=== PATIENT | male | born 1955 | race Hispanic/Latino ===

== ENCOUNTER 2017-03-15 19:00 | Outpatient (CLI) | payer BC | END 2017-03-15 19:01 | disposition home or self-care (01) | LOC: SLEEPLAB 19:00 | PROVIDERS: ATTEND Family Medicine | DX: G47.9 Sleep disorder, unspecified (principal); G47.33 Obstructive sleep apnea (adult) (pediatric); E66.9 Obesity, unspecified; I10 Essential (primary) hypertension | CPT/HCPCS: 95806 ==

== ENCOUNTER 2017-04-27 20:30 | Outpatient (CLI) | payer BC | END 2017-04-27 20:31 | disposition home or self-care (01) | LOC: SLEEPLAB 20:30 | PROVIDERS: ATTEND Family Medicine | DX: G47.9 Sleep disorder, unspecified (principal); E66.9 Obesity, unspecified | CPT/HCPCS: 95811 ==

== ENCOUNTER 2018-12-12 11:15 | Emergency (ER) | payer BC ==
[2018-12-12 11:55] LABS: #Basophils 0.1 thou/uL (0.0-0.2); #Eosinphils 0.2 thou/uL (0.0-0.7); #Lymphocytes 1.8 thou/uL (1.20-3.40); #Monocytes 0.9 thou/uL (0.11-0.59); #Neutrophils 8.7 thou/uL (1.40-6.50); %Basophils 0.8 % (0.0-1.0); %Eosinophils 1.3 % (0.0-10.0); %Lymphocytes 15.7 % (21.0-51.0); %Monocytes 7.4 % (0.0-10.0); %Neutrophils 74.8 % (42.0-75.0); Hemoglobin 16.2 g/dL (14.0-18.0); Mean Corpuscular HGB CONC 31.9 g/dL (32.0-36.0); Mean Corpuscular Hemoglobin 28.3 pg (27.0-31.0); Mean Corpuscular Volume 88.7 fL (78.0-98.0); Mean Platelet Volume 7.8 fL (7.4-10.4); Platelet Count 329 thou/uL (130-400); RBC Distribution Width 12.3 % (11.5-14.5); Red Blood Cell (RBC) Count 5.74 mill/uL (4.70-6.10); White Blood Cell (WBC) Count 11.6 thou/uL (4.8-10.8)
[2018-12-12 12:00] LABS: INR-International Normal Ratio 1.1; PTT 28.4 SEC (22.9-36.1); Prothrombin Time 14.5 SEC (12.0-14.7)
[2018-12-12 12:22] LABS: ALT (SGPT) 18 U/L (8-55); AST (SGOT) 28 U/L (5-34); Albumin 3.7 g/dL (3.4-4.8); Alkaline Phosphatase 99 U/L (40-150); Anion Gap 15 mmol/L (10-20); BUN (Urea Nitrogen) 17 mg/dL (8.4-25.7); Bilirubin, Total 0.8 mg/dL (0.2-1.2); Calc. Creatinine Clearance 0 mL/min (70-130); Calcium 8.8 mg/dL (7.8-10.44); Carbon Dioxide 25 mmol/L (23-31); Chloride 100 mmol/L (98-107); Estimated GFR-MDRD 55; Globulin 3.8 g/dL (2.4-3.5); Glucose 102 mg/dL (80-115); Lipase 79 U/L (8-78); Potassium 4.2 mmol/L (3.5-5.1); Protein, Total 7.5 g/dL (5.8-8.1); Sodium 136 mmol/L (136-145)
[2018-12-12] MEDS ORDERED: Lidocaine 1% (PF) 30 ML VIAL ONE (12:34)
[2018-12-12] MEDS ORDERED: Morphine 4 MG/ML VIAL ONE (12:48)
[2018-12-12 13:09] LABS: HBCM Index 0.05 S/CO (0-0.79); Hep A IgM AB Non-Reactive (NonReactive); Hep A IgM S/CO 0.16 S/CO (0-0.79); Hep B Surf Ag Non-Reactive S/CO (NonReactive); Hep C IgG Ab Non-Reactive (NonReactive); Hepatitis B Core IgM Abs Non-Reactive (NonReactive)
[2018-12-12 13:58] LABS: BF Color Yellow; Body Fluid Source Ascites Body Fluid; Clarity Cloudy/Turbid (Clear); RBC Count-Automated 10000 /cumm; Tube # 1; WBC/NonHematic-Auto 717 /cumm
[2018-12-12 14:01] LABS: Fluid, Protein 4.3 g/dL (Not Available)
[2018-12-12 14:25] LABS: BF Segmented Neutrophils 2 %; Cell Count Non Hematic 63 %; Lymphocytes 35 %
== END 2018-12-12 14:55 | disposition home or self-care (01) ==
LOC: ERS 11:15
DX: R18.8 Other ascites (principal); I10 Essential (primary) hypertension; F41.9 Anxiety disorder, unspecified; F17.220 Nicotine dependence, chewing tobacco, uncomplicated; Z79.899 Other long term (current) drug therapy
CPT/HCPCS: 36415; 49083; 80053; 80074; 82042; 82945; 83690; 84157; 85025; 85060; 85610; 85730; 87070; 87205; 88112; 88305; 88341; 88342; 89051; 96374; J2001; J2270

== ENCOUNTER 2018-12-16 12:56 | Outpatient (CLI) | payer BC ==
--- NOTE | 2018-12-16 13:11 | RAD ---
TWO VIEWS OF THE CHEST: COMPARISON: None. HISTORY: Neoplasm of the head of the pancreas. FINDINGS: Two views of the chest show a normal size cardiomediastinal silhouette. There are low lung volumes o n this exam. There is no evidence of consolidation, mass, or pleural effusion. Degenerative changes are seen in the spine. IMPRESSION: No evidence of acute cardiopulmonary disease. POS: [facility]
== END 2018-12-16 12:57 | disposition home or self-care (01) ==
LOC: BICRAD 12:56
PROVIDERS: ATTEND Internal Medicine Medical Oncology
DX: C25.0 Malignant neoplasm of head of pancreas (principal)
CPT/HCPCS: 71046

== ENCOUNTER 2018-12-22 09:51 | Outpatient (CLI) | payer BC ==
--- NOTE | 2018-12-22 15:03 | PET ---
PET CT: HISTORY: 63-year-old male with pancreatic cancer. Cancer in the peritoneal fluid. Exam requested for initial s taging. TECHNIQUE: PET scanning with CT attenuation correction was performed from the base of the brain through the prox imal thighs following the intravenous administration of 13 mCi F18-FDG in the left antecubital fossa. COMPARISON: None. CORRELATION: CT abdomen and pelvis of 12/11/18. FINDINGS: There is ascites in the abdomen and pelvis. Numerous hypermetabolic foci are noted in the peritoneal implants in the abdomen and pelvis with a maximum SUV of 10.5 in the left upper quadrant. There is a focal area of increased FDG localization in the liver, likely left lobe close to the hilum with a SUV of 5.7. There is a hypermetabolic lymph node in the gastrohepatic ligament with a SUV of 2.6. The hypermetabolic peripancreatic lymph node has a SUV of 3.6. No isis hypermetabolism is seen in the neck, chest, or axilla. No hypermetabolic pulmonary nodules, adrenal, or skeletal lesions are seen. The CT scan used for attenuation correction demonstrates ascites. No pleural or pericardial effusions are seen. There is physiologic activity in the GI and tracts, and the visualized portions of the brain. No hypermetabolic pancreatic lesions are seen. IMPRESSION: Findings are consistent with peritoneal, liver, and lymph isis metastases. POS: [facility]
== END 2018-12-22 09:52 | disposition home or self-care (01) ==
LOC: PET 09:51
PROVIDERS: ATTEND Internal Medicine Medical Oncology
DX: C25.9 Malignant neoplasm of pancreas, unspecified (principal); C78.6 Secondary malignant neoplasm of retroperitoneum and peritoneum
CPT/HCPCS: 78815; A9552

== ENCOUNTER 2018-12-24 21:29 | Inpatient (IN) | payer BC, MEDICARE ==
[2018-12-24 22:10] LABS: #Basophils 0.1 thou/uL (0.0-0.2); #Eosinphils 0.2 thou/uL (0.0-0.7); #Lymphocytes 1.1 thou/uL (1.20-3.40); #Neutrophils 9.4 thou/uL (1.40-6.50); %Basophils 0.4 % (0.0-1.0); %Lymphocytes 9.2 % (21.0-51.0); %Monocytes 8.3 % (0.0-10.0); %Neutrophils 80.1 % (42.0-75.0); Mean Corpuscular HGB CONC 31.4 g/dL (32.0-36.0); Mean Corpuscular Hemoglobin 27.7 pg (27.0-31.0); Mean Corpuscular Volume 88.2 fL (78.0-98.0); Mean Platelet Volume 7.5 fL (7.4-10.4); Platelet Count 431 thou/uL (130-400); RBC Distribution Width 12.4 % (11.5-14.5); Red Blood Cell (RBC) Count 5.41 mill/uL (4.70-6.10); White Blood Cell (WBC) Count 11.8 thou/uL (4.8-10.8)
[2018-12-24 22:31] LABS: ALT (SGPT) 21 U/L (8-55); AST (SGOT) 44 U/L (5-34); Albumin 3.3 g/dL (3.4-4.8); Alkaline Phosphatase 107 U/L (40-150); Anion Gap 19 mmol/L (10-20); BUN (Urea Nitrogen) 77 mg/dL (8.4-25.7); Bilirubin, Total 0.6 mg/dL (0.2-1.2); Calc. Creatinine Clearance 0 mL/min (70-130); Calcium 8.6 mg/dL (7.8-10.44); Carbon Dioxide 22 mmol/L (23-31); Chloride 94 mmol/L (98-107); Estimated GFR-MDRD 19; Globulin 4.2 g/dL (2.4-3.5); Glucose 102 mg/dL (80-115); Lipase 128 U/L (8-78); Potassium 5.9 mmol/L (3.5-5.1); Protein, Total 7.5 g/dL (5.8-8.1); Sodium 129 mmol/L (136-145)
[2018-12-24 22:33] LABS: Bilirubin Negative (Negative); Blood, Urine Negative (Negative); Clarity Clear (Clear); Glucose, Urine (Dipstick) Normal (Negative); Leukocyte Negative Leu/uL (Negative); Nitrite Negative (Negative); Protein, Urine (Dipstick) 10 mg/dL (Neg-Trace); Urobilinogen Normal mg/dL (Less than 2)
[2018-12-25] MEDS ORDERED: traMADol HCl 50 MG TAB PO PRN ×3 (00:28→13:20)
[2018-12-25] MEDS: Dicyclomine 10 MG CAP PO PRN ×3 (00:53→17:56)
[2018-12-25] MEDS: traMADol HCl 50 MG TAB PO PRN ×3 (00:53→17:07)
[2018-12-25] MEDS ORDERED: Sodium Chloride 0.9% 1,000 ML IV SCH (01:00)
[2018-12-25] MEDS ORDERED: Acetaminophen 650 MG Suppository PR PRN (02:53)
[2018-12-25] MEDS ORDERED: Ondansetron ODT 4 MG TAB PO PRN (02:53)
[2018-12-25 03:23] LABS: ALT (SGPT) 19 U/L (8-55); AST (SGOT) 39 U/L (5-34); Albumin 2.6 g/dL (3.4-4.8); Alkaline Phosphatase 82 U/L (40-150); Anion Gap 17 mmol/L (10-20); BUN (Urea Nitrogen) 68 mg/dL (8.4-25.7); Bilirubin, Total 0.4 mg/dL (0.2-1.2); Calc. Creatinine Clearance 33 mL/min (70-130); Carbon Dioxide 18 mmol/L (23-31); Chloride 100 mmol/L (98-107); Estimated GFR-MDRD 22; Globulin 3.9 g/dL (2.4-3.5); Glucose 91 mg/dL (80-115); Potassium 5.9 mmol/L (3.5-5.1); Protein, Total 6.5 g/dL (5.8-8.1); Sodium 129 mmol/L (136-145)
[2018-12-25] MEDS: Sodium Chloride 0.9% 1,000 ML IV SCH ×2 (06:12→17:08)
[2018-12-25 06:46] LABS: #Basophils 0.1 thou/uL (0.0-0.2); #Eosinphils 0.4 thou/uL (0.0-0.7); #Lymphocytes 1.5 thou/uL (1.20-3.40); #Monocytes 1.2 thou/uL (0.11-0.59); #Neutrophils 8.6 thou/uL (1.40-6.50); %Basophils 0.6 % (0.0-1.0); %Eosinophils 3.6 % (0.0-10.0); %Lymphocytes 12.7 % (21.0-51.0); %Monocytes 9.9 % (0.0-10.0); %Neutrophils 73.3 % (42.0-75.0); Hemoglobin 13.7 g/dL (14.0-18.0); Mean Corpuscular HGB CONC 31.2 g/dL (32.0-36.0); Mean Corpuscular Hemoglobin 27.8 pg (27.0-31.0); Mean Platelet Volume 7.2 fL (7.4-10.4); Platelet Count 403 thou/uL (130-400); RBC Distribution Width 12.4 % (11.5-14.5); Red Blood Cell (RBC) Count 4.94 mill/uL (4.70-6.10); White Blood Cell (WBC) Count 11.8 thou/uL (4.8-10.8)
[2018-12-25] MEDS ORDERED: Prevnar 13-Val Conj/PF 0.5 ML SYRINGE IM ONE (09:00)
[2018-12-25 11:20] LABS: Hemoglobin 13.6 g/dL (14.0-18.0)
--- NOTE | 2018-12-25 11:27 | CON ---
DATE OF CONSULTATION: HISTORY OF PRESENT ILLNESS: Mr. Phan is a 63-year-old male, who was recently diagnosed with a gastric CA after a procedure by Dr. Gudino. He is now admitted for generalized malaise. He was also found to be in acute kidney injury. He has been having weight loss for the last several weeks. He has been complaining of some nausea, decreased appetite. He denies any chest pain or shortness of breath. We are now evaluating this patient for his acute kidney injury. REVIEW OF SYSTEMS: Positive for generalized malaise. Positive for decreased appetite. Positive for nausea. Denies any hematochezia, melena, or hematemesis. No fever or chills. Occasional joint pains. No abdominal pain. No diarrhea. No dysuria. No urinary frequency. PAST MEDICAL HISTORY: Includes history of hypertension, recent diagnosis of gastric cancer?, history of prostatitis, history of inguinal hernia. PAST SURGICAL HISTORY: Status post upper GI endoscopy, status post colonoscopy, status post cholecystectomy. SOCIAL HISTORY: The patient is , 3 children. No smoking. No alcohol intake. No IV drug abuse. No blood transfusion. EDUCATION: GED. 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 FAMILY HISTORY: No family history of ESRD. ALLERGIES: NONE. TRAUMA: None. IMMUNIZATIONS: Not up-to-date. No flu shot. HOSPITALIZATION: Please see past medical history. PHYSICAL EXAMINATION: VITAL SIGNS: Blood pressure is 113/67, previously 96/46, heart rate 73, respiratory rate 18, temperature 98, and pulse ox 95%. GENERAL: Awake, alert, obese, comfortable, not in distress. SKIN: Adequate turgor. HEENT: He has pinkish conjunctivae. Anicteric sclerae. NECK: No masses. No carotid bruits. No JVD. LUNGS: Clear breath sounds. No wheezing. No crackles. HEART: Normal sinus rhythm. No murmur, no gallops, no rubs. ABDOMEN: Globular, soft, nontender. No masses. Positive for bowel sounds. Negative for epigastric bruits. : Groin exam, inguinal lymphadenopathy. EXTREMITIES: No edema. No deformities. NEUROLOGICAL: Awake and oriented to 3 spheres. Moving all extremities. No tremors. No asterixis. No ataxia. HOME MEDICATIONS: Included, 1. Furosemide 20 mg p.o. q.a.m. 2. Lisinopril 40 mg tablet once a day. 3. Spironolactone 50 mg daily. 4. Protonix 40 mg daily. 5. Tramadol p.r.n. 6. Zofran p.r.n. LABORATORY DATA: Laboratories of December 25, 2018; white count 11.8, hemoglobin 13.7. Urinalysis was normal. Urine sodium is 36. Sodium 129, potassium 5.9, chloride 100, carbon dioxide 18, BUN 68, creatinine 2.85, AST 39, ALT 19, albumin 2.6, lipase 128. December 24, 2018, creatinine 3.35. December 15, 2018, creatinine was 1.71. December 11, 2018, creatinine 1.18. IMAGING STUDIES: December 16, 2018, chest x-ray showed no evidence of CHF or infiltrates. December 22, 2018, PET scan shows consistent with peritoneal liver and lymph node metastasis. December 11, 2018, CT scan of the abdomen and pelvis shows interval development of large amount of ascites, no pelvic masses were noted. The hepatic size is minimally smaller than normal. ASSESSMENT AND PLAN: 1. Acute kidney injury-I suspect this is all hemodynamically mediated dysfunction secondary to his medications and decreased p.o. intake of this patient. Agree with volume repletion. 2. Ascites-the patient has underlying intra-abdominal pathology. 3. Gastric carcinoma?-the patient currently being worked up by his oncologist. He is supposed to have an appointment tomorrow. We will consider consulting Hematology-Oncology. 4. No indication for any dialytic intervention. I suspect the hyperkalemia will improve with improving renal function. We will recheck basic metabolic profile, CBC in a.m. Continue IV fluids. 5. A renal ultrasound was also ordered. Job ID: [id number]
[2018-12-25] MEDS ORDERED: Sodium Bicarbonate 2.5 MEQ/5 ML VIAL ONE (12:09)
--- NOTE | 2018-12-25 12:32 | ULT ---
BILATERAL RENAL ULTRASOUND: HISTORY: Acute renal failure. COMPARISON: None. TECHNIQUE: Multiplanar rogers-scale and color Doppler images were obtained in a renal ultrasound. FINDINGS: The kidneys are normal in echogenicity without hydronephrosis or calculi and measure 12.3 and 11.0 cm in length, on the right and left, respectively. Ascites is seen in the abdomen. Limited visualization of the urinary bladder is unremarkable. IMPRESSION: 1. No significant renal abnormalities. 2. Ascites. POS: [facility]
--- NOTE | 2018-12-25 12:57 | CON ---
DATE OF CONSULTATION: 12/25/2018 CHIEF COMPLAINT: Abdominal pain. HISTORY OF PRESENT ILLNESS: Mr. Phan is a 63-year-old man, who came to the emergency room yesterday with progressive weakness and lack of appetite and generalized abdominal discomfort and weight loss. He underwent screening colonoscopy back in November with removal of 4 adenomatous small polyps. After that he developed abdominal distention and discomfort and weight loss, and at the end of the month, he had paracentesis performed that showed adenocarcinoma consistent with malignant ascites. He then underwent upper endoscopy by Dr. Gudino last week and a gastric mass was found in the fundus of the stomach. Biopsies confirmed adenocarcinoma. He is scheduled to follow up with Dr. Alejandra now for further treatment. Over the last week, he has had poor appetite and has continued losing weight. He has acute kidney injury, which is likely prerenal. GI was consulted due to the loss of appetite and abdominal discomfort. He does report some diarrhea after meals with around 4 liquid to loose stools per day. 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 PAST SURGICAL HISTORY: Colonoscopy, EGD, and cholecystectomy. FAMILY HISTORY: Negative for GI malignancy. SOCIAL HISTORY: No alcohol, tobacco, or drugs. ALLERGIES: NO KNOWN DRUG ALLERGIES. MEDICATIONS: Prior to admission, 1. Dicyclomine. 2. Ondansetron. 3. Sennosides. 4. Tramadol. 5. Pantoprazole. 6. Spironolactone. 7. Lisinopril. 8. Furosemide. PHYSICAL EXAMINATION: VITAL SIGNS: Temperature 97.7, pulse 90, blood pressure 104/65. GENERAL: He is in no acute distress. Alert and oriented x3. HEENT: Eyes have no scleral icterus. Oropharynx is clear without lesions. No cervical or supraclavicular lymphadenopathy. LUNGS: Clear to auscultation bilaterally. HEART: Regular rate and rhythm without murmur. ABDOMEN: Soft, mildly distended, but not tense with ascites. Bowel sounds are present. EXTREMITIES: No lower extremity edema. NEUROLOGIC: Cranial nerves are grossly intact. LABORATORY DATA: Sodium 129, potassium 5.9, creatinine 2.85 today, down from 3.35 yesterday. Baseline creatinine is in the 1.7 range. Bilirubin 0.4, AST 39, ALT 19, alkaline phosphatase 82. IMAGING STUDIES: He had a PET scan on 12/22/2018, which showed signs of liver and peritoneal and lymph node metastases. IMPRESSION: 1. Adenocarcinoma of the gastric fundus, metastatic to the liver and lymph nodes with malignant ascites. He is scheduled to follow up with Oncology tomorrow in the office. 2. Diarrhea. I will send stool samples. He has loose stools after meals mostly. 3. Acute renal failure. 4. Ascites, abdominal discomfort, and weight loss. We will run a paracentesis today to rule out SBP, and also, if small amount of fluid can be removed from a therapeutic standpoint, we will do this as well. We will have to be careful with that regarding his renal function. RECOMMENDATIONS: 1. Stool studies. 2. Paracentesis today. Job ID: [id number]
--- NOTE | 2018-12-25 13:27 | ULT ---
US Paracentesis with Imaging HISTORY: Malignant ascites. Questionable infection. COMPARISON: None. FINDINGS: After informed consent was obtained the patient was prepped and draped in normal sterile fa shion. The largest pocket of fluid is in the left lower quadrant. This was area chosen for paracentesis. Local anesthesia was obtained with 1% Xylocaine mixed with sodium bicarbonate. A 6 Fren ch Yueh catheter was introduced after a small skin incision had been made. Approximately 2.5 L of lightly blood-tinged fluid was obtained. The patient tolerated the procedure well there were no immed iate complications. IMPRESSION: Ultrasound-guided paracentesis of 2.5 L of fluid.
[2018-12-25 13:35] LABS: Body Fluid Source Ascites Body Fluid; Clarity Hazy (Clear)
[2018-12-25 13:36] LABS: BF Color Yellow; RBC Count-Automated 14000 /cumm; Tube # EDTA; WBC Background Count 0.01; WBC/NonHematic-Auto 1610 /cumm
[2018-12-25 14:29] LABS: BF Segmented Neutrophils 6 %; Cell Count Non Hematic 60 %; Lymphocytes 34 %
--- NOTE | 2018-12-25 15:18 | PDOC.PN ---
- Subjective Encounter Start Date: 12/25/18 Encounter Start Time: 15:14 Mr. Phan was seen today in follow-up if weight loss and generalized weakness. He still has trouble when he tries to eat. He will eat a few bites, and then become nauseated and can't keep anything down. - Objective Resuscitation Status - Order Detail: 12/25/18 02:53 Resuscitation Status Routine Resuscitation Status: FULL: Full Resuscitation MAR Reviewed: Yes Vital Signs & Weight: Vital Signs (12 hours) Temp Pulse Resp BP Pulse Ox 12/25/18 11:35 97.7 F 90 18 104/65 92 L 12/25/18 08:00 95 12/25/18 07:37 98.0 F 73 18 113/67 95 12/25/18 04:13 97.7 F 72 16 96/46 L 93 L Weight Weight 196 lb 9 oz I&O: 12/24/18 12/25/18 12/26/18 06:59 06:59 06:59 Intake Total 1220 Balance 1220 Result Diagrams: 12/25/18 11:12 12/25/18 02:56 Phys Exam - Physical Examination HEENT: PERRLA Respiratory: no wheezing, no rales, no rhonchi, clear to auscultation bilateral Cardiovascular: RRR, no significant murmur, no rub Gastrointestinal: soft, non-tender, no distention, positive bowel sounds Musculoskeletal: no edema, pulses present Dx/Plan (1) Abdominal pain Code(s): R10.9 - UNSPECIFIED ABDOMINAL PAIN Status: Acute (2) Acute kidney injury Code(s): N17.9 - ACUTE KIDNEY FAILURE, UNSPECIFIED Status: Acute (3) Weight loss Status: Acute (4) Gastric cancer Status: Acute (5) Hematochezia Code(s): K92.1 - MELENA Status: Acute (6) Ascites Code(s): R18.8 - OTHER ASCITES Status: Acute (7) Hyponatremia Code(s): E87.1 - HYPO-OSMOLALITY AND HYPONATREMIA Status: Acute - Plan * Abdominal pain- primarily in the RUQ- patient is just returning from paracentesis. Work-up is in progress * Acute kidney injury- likely due to volume depletion- continue IV Hydration, and monitor the effect * Hyponatremia- continue IV hydration- will add serum and urine osmolality to help assess * Gastric Cancer- this has just been recently diagnosed- will consult Oncology to help with further recommendations * Hematochezia- likely due to gastric cancer - further recommendations from GI .
[2018-12-25 16:27] LABS: Hemoglobin 14.1 g/dL (14.0-18.0)
[2018-12-25 16:33] LABS: INR-International Normal Ratio 1.3; PTT 29.7 SEC (22.9-36.1); Prothrombin Time 16.3 SEC (12.0-14.7)
[2018-12-25] MEDS: Ondansetron PF 4 MG/2 ML Vial IVP PRN (17:53)
[2018-12-25 22:39] LABS: Hemoglobin 13.6 g/dL (14.0-18.0)
[2018-12-26] MEDS: Sodium Chloride 0.9% 1,000 ML IV SCH ×3 (03:48→20:21)
[2018-12-26] MEDS: traMADol HCl 50 MG TAB PO PRN ×2 (05:23→17:46)
[2018-12-26] MEDS: Ondansetron PF 4 MG/2 ML Vial IVP PRN ×2 (05:43→17:50)
[2018-12-26 05:57] LABS: #Basophils 0.1 thou/uL (0.0-0.2); #Eosinphils 0.4 thou/uL (0.0-0.7); #Neutrophils 10.1 thou/uL (1.40-6.50); %Basophils 0.5 % (0.0-1.0); %Lymphocytes 8.1 % (21.0-51.0); %Monocytes 7.9 % (0.0-10.0); %Neutrophils 80.4 % (42.0-75.0); Hemoglobin 14.2 g/dL (14.0-18.0); Mean Corpuscular HGB CONC 30.7 g/dL (32.0-36.0); Mean Corpuscular Hemoglobin 27.7 pg (27.0-31.0); Mean Platelet Volume 7.3 fL (7.4-10.4); Platelet Count 410 thou/uL (130-400); RBC Distribution Width 12.4 % (11.5-14.5); Red Blood Cell (RBC) Count 5.12 mill/uL (4.70-6.10); White Blood Cell (WBC) Count 12.6 thou/uL (4.8-10.8)
[2018-12-26 06:17] LABS: Anion Gap 13 mmol/L (10-20); BUN (Urea Nitrogen) 56 mg/dL (8.4-25.7); Calc. Creatinine Clearance 39 mL/min (70-130); Calcium 8.4 mg/dL (7.8-10.44); Carbon Dioxide 23 mmol/L (23-31); Chloride 101 mmol/L (98-107); Estimated GFR-MDRD 27; Glucose 85 mg/dL (80-115); Potassium 5.6 mmol/L (3.5-5.1); Sodium 131 mmol/L (136-145)
--- NOTE | 2018-12-26 08:23 | HP ---
PRIMARY CARE DOCTOR: None reported. CODE STATUS: Full code. TIME OF EVALUATION: 3:35 a.m. CHIEF COMPLAINT: Generalized weakness, nausea, and vomiting. HISTORY OF PRESENT ILLNESS: This is a 63 years old male patient, with past medical history of recently diagnosed stomach cancer. The patient has been receiving workup by Dr. Gudino who did EGD and colonoscopy past week for the diagnosis. The patient also reported seeing some blood in the stool. The symptoms are [id number] , started insidiously in the past couple of days, and probably getting worse. The patient has been unable to keep anything down yesterday. REVIEW OF SYSTEMS: CONSTITUTIONAL: No fever or chills. The patient has generalized weakness. RESPIRATORY: No cough, sputum production, or shortness of breath. CARDIOVASCULAR: No chest pain or palpitation. GASTROINTESTINAL: The patient had nausea, vomiting. No diarrhea. The patient has abdominal distention. NEWSPAPER EDITOR: No dizziness, headache, or feeling lightheaded. GENITOURINARY: No burning on urination. EXTREMITIES: No leg swelling. All other systems were reviewed and negative except for the findings mentioned above. PAST MEDICAL HISTORY: Positive for hypertension, recent diagnosis of stomach cancer. PAST SURGICAL HISTORY: Gallbladder removal, cholecystectomy . PSYCHIATRIC HISTORY: Includes anxiety. FAMILY HISTORY: Reviewed and non contributory for current presentation. SOCIAL HISTORY: No alcohol, no drugs. ALLERGIES: NO KNOWN DRUG ALLERGIES. REPORTED MEDICATIONS: 1. Lisinopril. 2. Spironolactone. 3. Furosemide. 4. Zofran. 5. Dicyclomine. 6. Vegetable laxative. PHYSICAL EXAMINATION: VITAL SIGNS: On presentation, heart rate 106, respiratory rate 22, oxygen saturation was 95% on room air, blood pressure was 94/67, the repeat one 116/64, heart rate 96. GENERAL APPEARANCE: The patient is alert, oriented, not in acute distress. HEENT: Eyes, normal conjunctivae. Moist oral mucosa. Anicteric. No JVD. RESPIRATORY: Bilateral air entry. No rales. No wheezes. Symmetric expansion. CARDIOVASCULAR: Normal rate, regular rhythm. No murmurs. No gallop. No edema. The patient initially was hypotensive. ABDOMEN: Distended, soft, nontender. MUSCULOSKELETAL: Baseline range of motion and strength. SKIN: Warm, intact. No pallor. No rash. No redness. Capillary refill seems to be intact. NEURO: No evidence of any new focal weakness. Cranial nerves seems to be intact. PSYCH: The patient is in good mood. No anxiety. Optimal judgment. IMAGING STUDIES: PET scan done few days ago was reviewed. The patient has findings consistent with peritoneal, liver lymphonodular metastases. LABORATORY DATA: Reviewed. White count 11.8, hemoglobin 15, MCV 88.2, platelet count 431. Chemistry; sodium 129, potassium 5.9, chloride 94, carbon dioxide 22 , anion gap 19, BUN 77, the repeat 168. Initial creatinine 3.35 and the repeat one 2.85. In previous admissions, creatinine was 1.7. The LFTs were negative. Troponin was negative. Urine was done and was negative. ASSESSMENT AND PLAN: The patient will be placed in the hospital with following medical problems. 1. Stomach cancer causing recurrent nausea and vomiting, the patient unable to eat. We will put him on Protonix, Dr. Gudino has been consulted, we will follow recommendations. We will need Oncology evaluation for any further treatment as inpatient. He follows with Dr. Alejandra. 2. Dehydration. The patient presented with severe dehydration, has received some fluids and blood pressure was improved. This is likely due to poor oral intake. 3. Hyponatremia, sodium 129, is likely due to persistent nausea, vomiting, and poor oral intake. The patient continued to receive IV fluids. 4. Hyperkalemia, potassium 5.9, this is secondary to acute kidney injury. We will continue to hydrate, most likely potassium will come down. 5. Acute kidney injury. The patient presented with creatinine 3.3 and previous presentation creatinine was 1.7. The patient has received aggressive hydration and repeat creatinine is 2.8. We will consult Nephrology. We will follow recommendation. Avoid nephrotoxic drugs. 6. Possible gastrointestinal bleeding. Hemoglobin was stable. We will repeat hemoglobin, we will treat accordingly. The patient to be seen by Dr. Gudino. We will follow recommendations. 7. Deep venous thrombosis prophylaxis. 8. Uncontrolled hypertension. He initially presented with hypotension due to dehydration. We will monitor blood pressure and adjust treatment as needed. Job ID: [id number] MTDD
--- NOTE | 2018-12-26 10:04 | PRG ---
DATE OF SERVICE: 12/26/2018 SUBJECTIVE: Mr. Phan is a 63-year-old male, who was seen for an acute kidney injury. He has also had a recent diagnosis of gastric carcinoma. He was admitted for nausea, vomiting, and weight loss. We felt that the acute kidney injury was a hemodynamically-mediated renal dysfunction. Empiric volume repletion has been given and he is feeling better. He denies any chest pain or shortness of breath. His appetite and energy level are fair. He still has some nausea. OBJECTIVE: VITAL SIGNS: Blood pressure 131/77, heart rate 84, respiratory rate 18, temperature 98, and pulse ox 94%. GENERAL: Awake, alert, comfortable, not in distress. SKIN: Adequate turgor. HEENT: Pinkish conjunctivae. Anicteric sclerae. NECK: No neck mass. No carotid bruits. No JVD. CHEST: No deformities. LUNGS: Clear breath sounds. No wheezing. No crackles. HEART: Normal sinus rhythm. No murmur. No gallops. No rubs. ABDOMEN: Globular, soft, nontender. No masses. EXTREMITIES: No edema. No deformities. MEDICATIONS: Medications of December 26, 2018, were reviewed. LABORATORY DATA: Laboratories of December 26, 2018; white count 12.6, hemoglobin 14.2. Sodium 131, potassium 5.6, chloride 101, carbon dioxide 23, BUN 56, creatinine 2.39, calcium is 8.4. Urinalysis benign. IMAGING STUDIES: Renal ultrasound of December 25, 2018, showed no significant renal abnormalities, positive for ascites. ASSESSMENT AND PLAN: 1. Acute kidney injury - hemodynamically-mediated renal dysfunction secondary to most likely volume depletion. Continue empiric IV fluid. Renal function is slowly improving. There is no indication for any dialytic intervention. 2. Gastric carcinoma-followed up by his GI doctor. For eventual Oncology evaluation. 3. Recheck basic metabolic profile in a.m. Job ID: [id number]
--- NOTE | 2018-12-26 12:26 | PRG ---
DATE OF SERVICE: 12/26/2018 SUBJECTIVE: Mr. Phan did feel better after paracentesis. He had 2.5 L removed from his abdomen. He still has some abdominal discomfort and nausea with oral intake. OBJECTIVE: VITAL SIGNS: Temperature is 98, pulse 90, blood pressure 126/83. GENERAL: He is in no acute distress. Alert and oriented x3. LUNGS: Clear to auscultation bilaterally. HEART: Regular rate and rhythm without murmur. ABDOMEN: Soft, mildly tender in the upper abdomen without guarding. Bowel sounds are present. EXTREMITIES: No lower extremity edema. IMPRESSION: 1. Gastric adenocarcinoma metastatic to the liver and peritoneum. 2. Malignant ascites. He did have some clinical improvement with paracentesis, but overall the nausea and weight loss is related to his progressive and aggressive gastric cancer. RECOMMENDATIONS: 1. He is going to meet with Oncology today and discuss treatment options. 2. Continue his regular diet as he tolerates. Job ID: [id number]
[2018-12-26] MEDS ORDERED: CEFAZOLIN 2 GM, IV Admixture Fee-Chemo 1 UNITS in Sodium Chloride 0.9% 100 ML IVPB SCH (16:00)
--- NOTE | 2018-12-26 17:44 | CON ---
DATE OF CONSULTATION: REASON FOR CONSULT: Gastric adenocarcinoma. HISTORY OF PRESENT ILLNESS: Mr. Phan is a 63-year-old male, who was in his usual state of health until approximately 5 weeks ago, when he began to have lower abdominal pain and anorexia. He developed abdominal bloating and nausea. He lost approximately 20 to 30 pounds. He had a paracentesis on December 12, yielding 2.5 L of ascitic fluids. Cells were consistent with adenocarcinoma. He then underwent an upper GI on 12/20. A stomach mass was noted and biopsy proved invasive moderately differentiated adenocarcinoma. The patient presented to the emergency room this weekend with weakness from weight loss. He was noted to be dehydrated with acute kidney injury. He was started on IV fluids and his kidney function is slowly improving. He did have a paracentesis yesterday with an another 2.5 L of fluid removed. He underwent an outpatient PET on December 22 showed numerous hypermetabolic foci consistent with peritoneal implants in the abdomen and pelvis. There was a liver lesion. There was a hypermetabolic lymph node in the gastrohepatic ligament. A hypermetabolic peripancreatic lymph node. We were asked to see the patient today regarding treatment options. The patient states he has intermittent nausea, has difficulty eating, and has continued weight loss over the last week. He has abdominal bloating and discomfort and generalized weakness. No hemoptysis. No melena or hematochezia. PAST MEDICAL HISTORY: Hypertension. PAST SURGICAL HISTORY: Upper and lower GI with biopsy, paracentesis, and cholecystectomy. ALLERGIES: NO KNOWN DRUG ALLERGIES. HOME MEDICATIONS: 1. Furosemide 20 mg daily. 2. Lisinopril 40 mg daily. 3. Spironolactone 50 mg daily. 4. Zofran p.r.n. FAMILY HISTORY: Noncontributory. SOCIAL HISTORY: , has grown children. No alcohol, tobacco, or illicit drug use. REVIEW OF SYSTEMS: A 10-point review of systems is negative except for noted in HPI. PHYSICAL EXAMINATION: VITAL SIGNS: Temperature is 98.0, pulse is 90, respiratory rate 18, BP is 126/83, and he is 95% on room air. GENERAL: This is a well-developed, well-nourished male, in no acute distress. HEENT: Normocephalic and atraumatic. Pupils are equal and reactive to light. NECK: Supple. CV: Regular rate and rhythm. LUNGS: Clear anterior. ABDOMEN: Distended and nontender. Bowel sounds are positive. EXTREMITIES: No clubbing, cyanosis, or edema. SKIN: No rash. HEMATOLOGIC: No petechiae or purpura. NEUROLOGIC: Nonfocal. PSYCH: He is alert, oriented, and appropriate. PERTINENT LABS AND X-RAYS: Current WBCs 12.6, hemoglobin 14.2, hematocrit 46.1, platelet count is 410,000, he has 81% neutrophils, and 8% lymphocytes. PT 16.3, INR is 1.3, and PTT is 29.7. Sodium is 131, potassium is 5.6, chloride is 101, CO2 is 23, BUN is 56, creatinine is 2.39, calcium is 8.4, bilirubin is 0.4, AST is 39, ALT is 19, alkaline phosphatase is 82, serum total protein is 6.5, albumin is 2.6, and globulin is 3.9. CEA is 1.21 and CA-19-9 is 1. ASSESSMENT: 1. Stage 4 gastric adenocarcinoma with liver, lymph node, and peritoneal metastatic disease. 2. Malignant ascites status post paracentesis. 3. Acute kidney injury secondary to dehydration. DISCUSSION: The patient has been receiving IV fluids with mild improvement in his kidney function. He will need a MediPort placed for chemotherapy. He will need biomarkers performed on the tissue including HER2 and PD-L1, send that order from our office. He will likely receive outpatient FOLFOX within the next week. Disease and treatment were discussed with the patient, his , and children at bedside. All questions were answered and he agrees to proceed with MediPort. Thank you for the consult. We will follow his hospital course. Job ID: [id number]
[2018-12-26] MEDS: Dicyclomine 10 MG CAP PO PRN (17:50)
--- NOTE | 2018-12-26 17:54 | PDOC.PN ---
- Subjective Encounter Start Date: 12/26/18 Encounter Start Time: 12:35 Mr. Phan was seen today in follow-up of abdominal pain and gastric cancer. He is feeling a little better after the paracentesis. He has still had a bit of nausea off and on. - Objective Resuscitation Status - Order Detail: 12/25/18 02:53 Resuscitation Status Routine Resuscitation Status: FULL: Full Resuscitation MAR Reviewed: Yes Vital Signs & Weight: Vital Signs (12 hours) Temp Pulse Resp BP Pulse Ox 12/26/18 16:32 97.9 F 95 16 118/73 93 L 12/26/18 11:45 98.0 F 90 18 126/83 95 12/26/18 08:00 94 L 12/26/18 07:22 98.0 F 84 18 131/77 94 L Weight Admit Weight 196 lb 9 oz Weight 196 lb 9 oz I&O: 12/25/18 12/26/18 12/27/18 06:59 06:59 06:59 Intake Total 1220 2890 Output Total 2500 Balance 1220 390 Result Diagrams: 12/26/18 05:39 12/26/18 05:39 Phys Exam - Physical Examination HEENT: PERRLA Respiratory: no wheezing, no rales, no rhonchi, clear to auscultation bilateral Cardiovascular: RRR, no significant murmur, no rub Gastrointestinal: soft, non-tender, no distention, positive bowel sounds Musculoskeletal: no edema, pulses present Dx/Plan (1) Abdominal pain Code(s): R10.9 - UNSPECIFIED ABDOMINAL PAIN Status: Acute (2) Acute kidney injury Code(s): N17.9 - ACUTE KIDNEY FAILURE, UNSPECIFIED Status: Acute (3) Weight loss Status: Acute (4) Gastric cancer Status: Acute (5) Hematochezia Code(s): K92.1 - MELENA Status: Acute (6) Ascites Code(s): R18.8 - OTHER ASCITES Status: Acute (7) Hyponatremia Code(s): E87.1 - HYPO-OSMOLALITY AND HYPONATREMIA Status: Acute - Plan * Abdominal pain- improved after fluid removal * He was found to have a malignant pleural effusion * Await Oncology input * He will need a mediport placed, and Surgery has been consulted.
[2018-12-27] MEDS: Sodium Chloride 0.9% 1,000 ML IV SCH ×3 (05:46→20:45)
[2018-12-27] MEDS: Ondansetron PF 4 MG/2 ML Vial IVP PRN (05:46)
[2018-12-27 06:47] LABS: Anion Gap 18 mmol/L (10-20); BUN (Urea Nitrogen) 47 mg/dL (8.4-25.7); Calc. Creatinine Clearance 47 mL/min (70-130); Calcium 8.1 mg/dL (7.8-10.44); Carbon Dioxide 17 mmol/L (23-31); Chloride 103 mmol/L (98-107); Estimated GFR-MDRD 34; Glucose 86 mg/dL (80-115); Potassium 5.8 mmol/L (3.5-5.1); Sodium 132 mmol/L (136-145)
[2018-12-27] MEDS: Dicyclomine 10 MG CAP PO PRN (08:03)
--- NOTE | 2018-12-27 10:39 | PRG ---
DATE OF SERVICE: 12/27/2018 SUBJECTIVE: Mr. Phan is a 63-year-old male with known history of gastric CA and admitted for volume depletion with acute kidney injury. Empiric volume repletion has been done with this patient with significant improvement of his renal function. Please note that the creatinine peaked at 3.35, is now currently 1.98. No other complaints today. Still with occasional nausea and decreased p.o. intake. OBJECTIVE: VITAL SIGNS: Blood pressure is 125/79, heart rate 92, respiratory rate 18, temperature 98, and pulse oximetry 93%. GENERAL: Awake, alert, supine, comfortable, not in distress. SKIN: Adequate turgor. HEENT: He has pinkish conjunctivae. Anicteric sclerae. No neck mass. No carotid bruits. No JVD. CHEST: No deformities. LUNGS: Clear breath sounds. No wheezing. No crackles. HEART: Normal sinus rhythm. No murmur. No gallops. No rubs. ABDOMEN: Globular, soft, nontender. No masses. EXTREMITIES: No edema. No deformities. MEDICATIONS: Medications of December 27, 2018, reviewed. LABORATORY DATA: Laboratories of December 26, 2018; white count 12.6, hemoglobin 14.2. Sodium 132, potassium 5.8, chloride 103, carbon dioxide 17, BUN 47, creatinine 1.98, GFR 34 mL/minute, calcium 8.1, and glucose 86. ASSESSMENT AND PLAN: 1. Acute kidney injury. This is a hemodynamically-mediated renal dysfunction. Continuing IV hydration. No indication for any dialytic intervention. 2. Gastric carcinoma-for MediPort placement and subsequent chemotherapy next week. Overall, agree with current management. Recheck basement CBC and metabolic panel in a.m. Job ID: [id number]
[2018-12-27] MEDS ORDERED: Lidocaine 1% (PF) 30 ML VIAL ONE (11:49)
[2018-12-27] MEDS ORDERED: Bupivacaine/Epinephrine 0.25% 30 ML VIAL ONE (11:49)
[2018-12-27] MEDS ORDERED: Midazolam HCl 2 mg/2 ml Vial ONE (12:10)
[2018-12-27] MEDS ORDERED: Fentanyl 100 MCG/2 ML VIAL ONE (12:10)
[2018-12-27] MEDS ORDERED: Promethazine 25 MG TAB PO PRN (12:17)
[2018-12-27] MEDS ORDERED: Promethazine HCl 25 MG/ML VIAL IM/IV PRN (12:17)
--- NOTE | 2018-12-27 12:46 | PRG ---
DATE OF SERVICE: 12/27/2018 SUBJECTIVE: Mr. Phan continues to have some nausea and abdominal cramping associated with eating and with bowel movements. His renal function is improving. He was seen by Oncology. MediPort placement is planned for later today with initiation of chemotherapy next week. OBJECTIVE: VITAL SIGNS: Temperature 98.0, pulse 92, blood pressure 125/79, and 93% oxygen saturation on room air. GENERAL: No acute distress. HEART: Regular rate and rhythm. LUNGS: Clear to auscultation bilaterally. ABDOMEN: Mild distention. Bowel sounds are present. Soft. Generalized tenderness to palpation. No guarding, rebound, tenderness. EXTREMITIES: No peripheral edema. LABORATORY STUDIES: WBC 12.6, hemoglobin 14.2, platelets 410. INR 1.3. Sodium 132, potassium 5.8, BUN 47, creatinine down to 1.98, glucose 86. Note that ascites fluid from 2 days ago showed 1610 wbc's and 14,000 rbc's, only 6% neutrophils. ASSESSMENT AND PLAN: 1. 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 2. Malignant ascites, secondary to gastric adenocarcinoma. 3. Nausea, vomiting, and abdominal pain, secondary to gastric adenocarcinoma with metastasis. Mr. Phan is set for MediPort placement later today and initiation of chemotherapy next week. We will defer further management to the Oncology Service and appreciate their assistance. Continue with supportive care otherwise. Discussed with the patient that his gastric tumor is not obstructing or even near obstructing, but the metastatic malignancy is what is underlying his symptoms. No further recommendations from a GI perspective at this time. GI will sign off, but please call anytime with questions or concerns. Job ID: [id number]
[2018-12-27] MEDS ORDERED: Sodium Chloride 0.9% 100 ML ONE (13:02)
[2018-12-27] MEDS ORDERED: CEFAZOLIN 1 GM VIAL ONE (13:02)
[2018-12-27] MEDS ORDERED: Promethazine HCl 25 MG/ML VIAL SLOW IVP PRN (14:14)
[2018-12-27] MEDS ORDERED: Promethazine HCl 25 MG/ML VIAL IM PRN (14:14)
[2018-12-27] MEDS ORDERED: Ondansetron HCl/PF 4 MG/2 ML Vial IVP PRN (14:14)
--- NOTE | 2018-12-27 14:48 | RAD ---
EXAM: CHEST ONE VIEW: 12/27/18 HISTORY: Post Mediport placement. COMPARISON: 12/16/18. FINDINGS: Inspiration less than optimal. Right central line and injection port in place. No pneumothorax or sig nificant pleural effusion. IMPRESSION: Poor inspiratory effort. No significant acute process. Right central line and injection port in place . POS: RRE
[2018-12-27] MEDS ORDERED: diphenhydrAMINE 50 MG/ML VIAL ONE (15:46)
[2018-12-27] MEDS ORDERED: Ondansetron PF 4 MG/2 ML Vial ONE (15:46)
--- NOTE | 2018-12-27 16:05 | CON ---
DATE OF CONSULTATION: 12/27/2018 CONSULTING PHYSICIAN: FERDINAND [place] REASON FOR CONSULTATION: Gastric adenocarcinoma. HISTORY OF PRESENT ILLNESS: The patient is a pleasant 63-year-old male. He had abdominal symptoms within the past 5 to 6 weeks. He was noted to have developed ascites, and a paracentesis was performed with findings consistent with adenocarcinoma. Upper GI endoscopy revealed a moderately differentiated adenocarcinoma. This was performed by Dr. Gudino. The patient presented to the emergency room following his diagnosis when secondary to feeling of weakness and diffuse symptoms. He was dehydrated, had acute kidney injury. He underwent PET scan that showed evidence of metastatic disease to liver and lymph nodes. He was seen by Oncology and of course felt to not be an immediate surgical candidate. Chemotherapy was recommended. I am consulted at this time for MediPort placement for chemotherapy administration. PAST MEDICAL HISTORY: Hypertension. PAST SURGICAL HISTORY: Cholecystectomy in . ALLERGIES: NO KNOWN DRUG ALLERGIES. MEDICATIONS: Furosemide, lisinopril, spironolactone. PRIMARY CARE PHYSICIAN: Dr. Parks in [place]. PERSONAL AND SOCIAL HISTORY: He is with 3 children. He does not smoke or drink alcohol. He is retired. He lives in [place]. REVIEW OF SYSTEMS: Otherwise unremarkable. FAMILY HISTORY: Noncontributory. PHYSICAL EXAMINATION: VITAL SIGNS: He is afebrile. Vital signs within normal limits. GENERAL: This is a well-developed, well-nourished, pleasant, male, resting in bed, in no acute distress, although he does look nervous. He is alert and oriented x3. is present at bedside. HEAD, EYES, EARS, NOSE, AND THROAT: Unremarkable. NECK: Supple without mass or tenderness. LUNGS: Clear to auscultation throughout. CARDIAC: Regular rate and rhythm without murmur. ABDOMEN: Soft, nontender, and nondistended. EXTREMITIES: Unremarkable. LABORATORY DATA: His CBC from yesterday reveals white blood cell count elevation at 12.6, hemoglobin is stable at 14.2, platelet count is 410. Coagulation panel from 2 days ago was unremarkable. Chemistries reveal that he has elevated potassium level of 5.8. His creatinine on presentation was 3.3, it is currently down to 1.9. ASSESSMENT: The patient with metastatic gastric adenocarcinoma. PLAN: MediPort placement for chemotherapy administration. I have discussed the operation in detail with the patient and his as well as potential risks. They understand and agree to proceed with surgery at this time. Job ID: [id number]
--- NOTE | 2018-12-27 17:40 | PDOC.HOSPP ---
- Subjective Subjective: Mr. Phan was seen today in follow-up of abdominal pain. He says the pain is better controlled. He is still having a lot of nausea and retching, and trouble keeping anything down. - Objective Vital Signs & Weight: Vital Signs (12 hours) Temp Pulse Resp BP Pulse Ox 12/27/18 08:20 98 F 92 18 125/79 93 L Weight Admit Weight 196 lb 9 oz Weight 196 lb 9 oz I&O: 12/26/18 12/27/18 12/28/18 06:59 06:59 06:59 Intake Total 2890 984 Output Total 2500 Balance 390 984 Result Diagrams: 12/26/18 05:39 12/27/18 05:48 ROS - Review of Systems All systems: All other ROS were reviewed and found negative. - Medication Medications: Active Medications Generic Name Dose Route Start Last Admin Trade Name Freq PRN Reason Stop Dose Admin Dicyclomine HCl 10 mg 12/25/18 00:29 12/27/18 08:03 Bentyl PO 10 mg QIDPRN PRN Administration CRAMP Sodium Chloride 1,000 mls @ 100 mls/hr 12/25/18 04:30 12/27/18 15:37 Normal Saline 0.9% IV Not Given .Q10H LINSEY Ondansetron HCl 4 mg 12/25/18 02:53 12/27/18 05:46 Zofran IVP 4 mg Q6H PRN Administration Nausea/Vomiting Pantoprazole Sodium 40 mg 12/25/18 09:00 12/27/18 08:03 Protonix PO 40 mg DAILY LINSEY Administration Tramadol HCl 100 mg 12/25/18 13:20 12/26/18 17:46 Ultram PO 100 mg Q6H PRN Administration Severe Pain (7-10) - Exam Eye: PERRL, anicteric sclera Heart: RRR, no murmur, no gallops, no rubs Respiratory: CTAB, no wheezes, no rales, no ronchi Gastrointestinal: soft, non-tender, normal bowel sounds, distended Extremities: no edema Hosp A/P (1) Abdominal pain Code(s): R10.9 - UNSPECIFIED ABDOMINAL PAIN Status: Acute (2) Acute kidney injury Code(s): N17.9 - ACUTE KIDNEY FAILURE, UNSPECIFIED Status: Acute (3) Weight loss Status: Acute (4) Gastric cancer Status: Acute (5) Hematochezia Code(s): K92.1 - MELENA Status: Acute (6) Ascites Code(s): R18.8 - OTHER ASCITES Status: Acute (7) Hyponatremia Code(s): E87.1 - HYPO-OSMOLALITY AND HYPONATREMIA Status: Acute - Plan * Abdominal pain- controlled with tramadol * Nausea- will add Phenergan as an option- hopefully this will perform better than Zofran * Gastric carcinoma- he has had the mediport placed. Plan is to start Chemotherapy as an outpatient * Acute kidney injury- improving * Hyponatremia- improved * Hyperkalemia- can try a dose of Kayexalate if he can keep it down * Hopefully home tomorrow
--- NOTE | 2018-12-28 02:39 | OP ---
DATE OF PROCEDURE: 12/27/2018 PREOPERATIVE DIAGNOSIS: Gastric cancer. POSTOPERATIVE DIAGNOSIS: Gastric cancer. PROCEDURE PERFORMED: Placement of right subclavian standard-sized power compatible MediPort. ANESTHESIA: Intravenous sedation with local using 0.25% Marcaine with epinephrine. INDICATIONS: The patient is a 63-year-old male. Recently, he was diagnosed with a gastric cancer. This appears to be metastatic to lymph nodes and liver and he is not felt to be a candidate for surgical treatment at this time. MediPort placement is recommended for chemotherapy. DESCRIPTION OF OPERATION: Informed consent was obtained. The patient was taken to the operating room where total intravenous anesthesia was obtained with the patient in supine position. Right periclavicular area was prepped with ChloraPrep and draped in sterile fashion. Local anesthetic was infiltrated and a large-gauge needle was passed under the clavicle in the subclavian vein. Guidewire was passed through the needle and fluoroscopically confirmed to enter the superior vena cava. Additional local anesthetic was infiltrated and transverse incision was created based on needle insertion site. A subcutaneous pocket was dissected inferiorly. Introducer dilator was passed over the guidewire under fluoroscopic guidance. The guidewire and dilator were removed, and the catheter was passed through the introducer. The tip of the catheter was positioned at the atriocaval junction and the catheter was trimmed to the appropriate length and secured to the locking hub of the MediPort. The port was then placed in the subcutaneous pocket where it was secured to the pectoral fascia with 2 interrupted sutures of 3-0 Prolene. The incision was then closed in layers with 3-0 and 4-0 Monocryl. Additional local anesthetic was infiltrated. The port was cannulated with a Saldana needle and it aspirated blood freely and was flushed with heparinized saline. Dermabond was placed externally on the skin incision. There were no complications. Blood loss was negligible. The patient tolerated the procedure well and was taken to recovery room in stable condition. FINDINGS: The patient had an uneventful surgery with essentially no blood loss. A standard-sized power compatible port was utilized. There were no complications. The patient tolerated the procedure well. Job ID: [id number]
[2018-12-28] MEDS ORDERED: Dextrose 50% Abboject 50 ML SYRINGE SLOW IVP SCH (03:04)
--- NOTE | 2018-12-28 03:07 | PDOC.EVN ---
Event Note - Event Note Event Note: Notified by RN, patient prescribed Kaexylate due to K+ 5.8 early yesterday. It was noted at bedside that patient has not taken it. Refusing due to nausea. 1 amp of Dextrose 50% prescribed, patient no diabetic therefore insulin not needed. Will recheck electrolytes.
[2018-12-28 03:25] LABS: Anion Gap 18 mmol/L (10-20); BUN (Urea Nitrogen) 46 mg/dL (8.4-25.7); Calc. Creatinine Clearance 50 mL/min (70-130); Calcium 8.5 mg/dL (7.8-10.44); Carbon Dioxide 14 mmol/L (23-31); Chloride 109 mmol/L (98-107); Estimated GFR-MDRD 37; Glucose 99 mg/dL (80-115); Magnesium 2.1 mg/dL (1.6-2.6); Potassium 6.2 mmol/L (3.5-5.1); Sodium 135 mmol/L (136-145)
[2018-12-28] MEDS ORDERED: Calcium Gluconate 4.6 MEQ in Sodium Chloride 0.9% 100 ML IVPB SCH (04:45)
[2018-12-28] MEDS ORDERED: Sodium Bicarb 50 MEQ/50 ML Abboject 8.4% SYRINGE IVP SCH (04:45)
[2018-12-28] MEDS ORDERED: Dextrose 5% in Water 1,000 ML IV SCH (05:00)
--- NOTE | 2018-12-28 06:49 | PDOC.EVN ---
Event Note - Event Note Event Note: we have been treating hyperkalemi over night, pt reported he purdy snot feel right , ekg was done and normal, will do cxr, ivf on hold for now, we will recheck bmp , pt has significant ascites, my need therapeutic tap . to be followed by my colleague during the day. vitals are subjective, vitals are wnl, metation is good, pt fully oriented
[2018-12-28] MEDS: Albuterol Sulfate 2.5 mg/3 ml Neb NEB SCH ×3 (06:52→08:59)
[2018-12-28 07:11] LABS: Anion Gap 17 mmol/L (10-20); BUN (Urea Nitrogen) 44 mg/dL (8.4-25.7); Calc. Creatinine Clearance 51 mL/min (70-130); Calcium 8.6 mg/dL (7.8-10.44); Carbon Dioxide 17 mmol/L (23-31); Chloride 107 mmol/L (98-107); Estimated GFR-MDRD 38; Glucose 111 mg/dL (80-115); Potassium 6.3 mmol/L (3.5-5.1); Sodium 135 mmol/L (136-145)
[2018-12-28] MEDS: Ondansetron PF 4 MG/2 ML Vial IVP PRN (08:23)
--- NOTE | 2018-12-28 08:50 | RAD ---
CHEST 1 VIEW: INDICATION: History of shortness of breath. COMPARISON: Prior exam dated 12/27/2018. IMPRESSION: Examination is unchanged from the comparison. There are low lung volumes with bibasilar atelectasis. Right chest wall port is unchanged. POS: BH
--- NOTE | 2018-12-28 09:05 | PRG ---
DATE OF SERVICE: 12/28/2018 SUBJECTIVE: Mr. Phan is a 63-year-old male, who was seen for his acute kidney injury. He also has a diagnosis of gastric carcinoma. He is complaining of some abdominal fullness. Please note, his IV fluid has been discontinued. No complaints of chest pain or shortness of breath. OBJECTIVE: VITAL SIGNS: Blood pressure is 120/76, heart rate 105, respiratory rate 20, temperature 97.8, and pulse oximetry 95%. GENERAL: Awake, alert, comfortable, not in distress. SKIN: Adequate turgor. HEENT: He has a pinkish conjunctivae. Anicteric sclerae. NECK: No neck mass. No carotid bruits. No JVD. CHEST: No deformities. LUNGS: Clear breath sounds. No wheezing. No crackles. HEART: Normal sinus rhythm. No murmurs. No gallops. No rubs. ABDOMEN: Globular, soft, and nontender. No masses. EXTREMITIES: Positive for trace edema. MEDICATIONS: Medications of December 28, 2018, was reviewed. LABORATORY DATA: Laboratories of December 26, 2018; white count 12.6 and hemoglobin 14.2. On December 28, 2018, sodium 135, potassium 6.3, chloride 107, carbon dioxide 17, BUN 44, creatinine 1.82, and calcium 8.6. ASSESSMENT AND PLAN: 1. Acute kidney injury - superimposed hemodynamically-mediated renal dysfunction. Slowly improving renal function. Creatinine is noted at 1.82 with a GFR of 38 mL/minute. We will discontinue the IV fluids since the patient's renal function is much improved. 2. Hyperkalemia - Kayexalate 30 g with lactulose 30 g at the same time. Agree with current management. Recheck basic metabolic in a.m. Job ID: [id number]
--- NOTE | 2018-12-28 09:43 | PDOC.MOPN ---
Interval History: Patient slept poorly. Denies pain. No shortness of breath. - Vital Signs Vital Signs: Vital Signs (12 hours) Temp Pulse Resp BP Pulse Ox 12/28/18 07:30 97.8 F 105 H 20 120/76 95 12/28/18 06:53 97 18 96 12/28/18 06:52 97 18 96 12/28/18 06:20 101 H 18 130/82 94 L 12/28/18 03:55 97.7 F 99 18 125/82 94 L Weight Admit Weight 196 lb 9 oz Weight 196 lb 9 oz - Physical Exam General: Alert HEENT: Atraumatic, PERRLA Lungs: Clear to auscultation, Normal air movement Cardiovascular: Regular rate, Normal S1, Normal S2, No murmurs, Gallops, Rubs Abdomen: Normal bowel sounds, Other (distended) Extremities: No clubbing, No cyanosis, No edema, Normal pulses, No tenderness/ swelling Skin: No rashes, No breakdown, No significant lesion Neurological: Normal gait, Normal speech, Strength at 5/5 X4 ext Psych/Mental Status: Mental status NL, Mood NL - Labs Result Diagrams: 12/26/18 05:39 12/28/18 06:42 Lab results: Laboratory Results - last 24 hr 12/28/18 06:42: Sodium 135 L, Potassium 6.3 H, Chloride 107, Carbon Dioxide 17 L , Anion Gap 17, BUN 44 H, Creatinine 1.82 H, Estimated GFR (MDRD) 38, Glucose 111, Calcium 8.6 12/28/18 03:00: Sodium 135 L, Potassium 6.2 H, Chloride 109 H, Carbon Dioxide 14 L, Anion Gap 18, BUN 46 H, Creatinine 1.86 H, Estimated GFR (MDRD) 37, Glucose 99, Calcium 8.5, Magnesium 2.1 Status: lab reviewed by me A/P - Problem (1) Ascites Current Visit: Yes Code(s): R18.8 - OTHER ASCITES Status: Acute Qualifiers: Ascites type: malignant Qualified Code(s): R18.0 - Malignant ascites (2) Gastric cancer Current Visit: Yes Status: Acute Qualifiers: 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 Qualified Code(s): 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 (3) Hyperkalemia Current Visit: Yes Code(s): E87.5 - HYPERKALEMIA Status: Acute - Plan Plan: DC home once kidney function and hyperkalemia improved. Outpt chemotherapy, hopefully starting next week
--- NOTE | 2018-12-28 11:50 | PDOC.HOSPP ---
- Subjective Subjective: Patient seen and examined. No new complaints. No overnight events - Objective Vital Signs & Weight: Vital Signs (12 hours) Temp Pulse Resp BP BP Pulse Ox 12/28/18 11:22 97.9 F 115 H 20 131/84 94 L 12/28/18 07:30 97.8 F 105 H 20 120/76 95 12/28/18 06:53 97 18 96 12/28/18 06:52 97 18 96 12/28/18 06:20 101 H 18 130/82 94 L 12/28/18 03:55 97.7 F 99 18 125/82 94 L Weight Admit Weight 196 lb 9 oz Weight 196 lb 9 oz I&O: 12/27/18 12/28/18 12/29/18 06:59 06:59 06:59 Intake Total 984 2071 Balance 984 2071 Result Diagrams: 12/26/18 05:39 12/28/18 06:42 Radiology Reviewed by me: Yes (chest xray reviewed ) ROS - Review of Systems All systems: All other ROS were reviewed and found negative. Constitutional: denies: fever, chills, sweats, weakness, malaise, other Eyes: denies: pain, vision change, conjunctivae inflammation, eyelid inflammation, redness, other ENT: denies: ear pain, ear discharge, nose pain, nose discharge, nose congestion , mouth pain, mouth swelling, throat pain, throat swelling, other Respiratory: denies: cough, dry, shortness of breath, hemoptysis, SOB with excertion, pleuritic pain, sputum, wheezing, other Cardiovascular: denies: chest pain, palpitations, orthopnea, paroxysmal noc. dyspnea, edema, light headedness, other Gastrointestinal: denies: nausea, vomitting, abdominal pain, diarrhea, constipation, melena, hematochezia, other Genitourinary: denies: dysuria, frequency, incontinence, hematuria, retention, other Musculoskeletal: denies: neck pain, shoulder pain, arm pain, back pain, hand pain, leg pain, foot pain, other - Medication Medications: Active Medications Generic Name Dose Route Start Last Admin Trade Name Freq PRN Reason Stop Dose Admin Dicyclomine HCl 10 mg 12/25/18 00:29 12/27/18 08:03 Bentyl PO 10 mg QIDPRN PRN Administration CRAMP Dextrose/Water 1,000 mls @ 100 mls/hr 12/28/18 05:00 12/28/18 04:46 D5w IV 1,000 mls .Q10H LINSEY Administration Ondansetron HCl 4 mg 12/25/18 02:53 12/28/18 08:23 Zofran IVP 4 mg Q6H PRN Administration Nausea/Vomiting Pantoprazole Sodium 40 mg 12/25/18 09:00 12/28/18 08:14 Protonix PO 40 mg DAILY LINSEY Administration Tramadol HCl 100 mg 12/25/18 13:20 12/26/18 17:46 Ultram PO 100 mg Q6H PRN Administration Severe Pain (7-10) - Exam NAD, awake alert Eye: PERRL ENT: normocephalic atraumatic, no oropharyngeal lesions Neck: symmetric, no JVD, no Thyromegaly Heart: RRR, no murmur, no gallops, no rubs Respiratory: no wheezes, no rales, no ronchi Gastrointestinal: soft, non-distended, normal bowel sounds Extremities: no cyanosis, no clubbing, no edema Skin: normal turgor, no lesions Neurological: CN's grossly intact, normal sensation to touch, no focal deficits Musculoskeletal: normal tone, normal strength, no muscle wasting Psychiatric: normal affect, normal behavior Hosp A/P (1) Abdominal pain Code(s): R10.9 - UNSPECIFIED ABDOMINAL PAIN Status: Acute (2) Acute kidney injury Code(s): N17.9 - ACUTE KIDNEY FAILURE, UNSPECIFIED Status: Acute (3) Ascites Code(s): R18.8 - OTHER ASCITES Status: Acute Qualifiers: Ascites type: malignant Qualified Code(s): R18.0 - Malignant ascites (4) Gastric cancer Status: Acute Qualifiers: 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 Qualified Code(s): 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 (5) Hematochezia Code(s): K92.1 - MELENA Status: Acute (6) Hyperkalemia Code(s): E87.5 - HYPERKALEMIA Status: Acute (7) Hyponatremia Code(s): E87.1 - HYPO-OSMOLALITY AND HYPONATREMIA Status: Acute (8) Weight loss Status: Acute - Plan old records reviewed/req, plan discussed w/ family, social worker palliative care nephrology managing potassium and NINA medication reviewed as below symptomatic treatment ? may need therapeutic paracentesis for comfort mediport placement done yesterday as per oncology outpt chemo he is not ready for discharge due to hyperkalemia
[2018-12-28] MEDS: Acetaminophen 325 MG TAB PO PRN (20:52)
[2018-12-28] MEDS ORDERED: Melatonin 3 MG TAB PO PRN (22:01)
[2018-12-29] MEDS ORDERED: Hydrocortisone Acetate 25 MG Suppository PR PRN (03:10)
[2018-12-29] MEDS: Ondansetron PF 4 MG/2 ML Vial IVP PRN (05:32)
[2018-12-29 06:14] LABS: Anion Gap 14 mmol/L (10-20); BUN (Urea Nitrogen) 48 mg/dL (8.4-25.7); Calc. Creatinine Clearance 47 mL/min (70-130); Calcium 8.7 mg/dL (7.8-10.44); Carbon Dioxide 20 mmol/L (23-31); Chloride 109 mmol/L (98-107); Estimated GFR-MDRD 34; Glucose 106 mg/dL (80-115); Potassium 5.5 mmol/L (3.5-5.1); Sodium 137 mmol/L (136-145)
[2018-12-29] MEDS: Acetaminophen 325 MG TAB PO PRN ×2 (08:08→20:25)
--- NOTE | 2018-12-29 09:40 | PRG ---
DATE OF SERVICE: 12/29/2018 SUBJECTIVE: Mr. Phan is a 63-year-old male, being followed by the Renal Service for his acute kidney injury that was a hemodynamically-mediated dysfunction. He has a recent diagnosis of gastric carcinoma. Plan is for him eventually to undergo chemotherapy as an outpatient. He was noted to be hyperkalemic yesterday and for that reason, he was given Kayexalate. His potassium is much improved. The patient still has some abdominal fullness. The patient is requesting to be transferred to [facility]. OBJECTIVE: VITAL SIGNS: Blood pressure is 130/82, heart rate 97, respiratory rate 20, temperature 98.2, and pulse ox 94%. GENERAL: Noted to be awake, supine, comfortable, not in overt distress. SKIN: Adequate turgor. HEENT: He has a pinkish conjunctivae. Anicteric sclerae. NECK: No neck mass. No carotid bruits. No JVD. CHEST: No deformities. LUNGS: Clear breath sounds. HEART: Normal sinus rhythm. No murmur. No gallops or rubs. ABDOMEN: Globular, soft. Nontender. No masses. EXTREMITIES: No edema. No deformities. MEDICATIONS: Medications of December 29, 2018, was reviewed. LABORATORY DATA: Laboratories of December 29, 2018, shows the following; sodium 137, potassium 5.5, chloride 109, carbon dioxide 20, BUN 48, creatinine 1.96, glucose 106, and calcium 8.7. ASSESSMENT AND PLAN: 1. Acute kidney injury - superimposed hemodynamically-mediated renal dysfunction. Slowly improving renal function. Creatinine is noted at 1.96. It seems that the creatinine has plateaued in the last 4 days at this value. He may have underlying intrinsic renal problem. For the moment, continue supportive care. There is no indication for any dialytic intervention. 2. Mild hyperkalemia - much improved with Kayexalate. 3. Gastric carcinoma. Supportive care for planned chemotherapy as an outpatient. 4. The patient requesting to be transferred to [facility] for further evaluation. 5. Recheck basic metabolic and CBC in a.m. Job ID: [id number]
--- NOTE | 2018-12-29 12:20 | PDOC.MOPN ---
Interval History: Patient complains of weakness, difficulty eating. Amubulatory. - Vital Signs Vital Signs: Vital Signs (12 hours) Temp Pulse Resp BP Pulse Ox 12/29/18 08:01 94 L 12/29/18 07:25 98.2 F 97 20 130/82 94 L Weight Admit Weight 196 lb 9 oz Weight 196 lb 9 oz - Physical Exam General: Alert, Oriented x3 HEENT: Atraumatic Lungs: Clear to auscultation Cardiovascular: Regular rate Abdomen: Normal bowel sounds Extremities: No clubbing Skin: No rashes Neurological: Normal gait Psych/Mental Status: Mental status NL - Labs Result Diagrams: 12/26/18 05:39 12/29/18 05:39 Lab results: Laboratory Results - last 24 hr 12/29/18 05:39: Sodium 137, Potassium 5.5 H, Chloride 109 H, Carbon Dioxide 20 L , Anion Gap 14, BUN 48 H, Creatinine 1.96 H, Estimated GFR (MDRD) 34, Glucose 106, Calcium 8.7 - Pathology Pathology: HER2, PDL1 pending A/P - Problem (1) Ascites Current Visit: Yes Code(s): R18.8 - OTHER ASCITES Status: Acute Qualifiers: Ascites type: malignant Qualified Code(s): R18.0 - Malignant ascites (2) Gastric cancer Current Visit: Yes Status: Acute Qualifiers: 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 Alejandra
--- NOTE | 2018-12-29 12:34 | PDOC.HOSPP ---
- Subjective Subjective: Patient seen and examined. No new complaints. No overnight events - Objective Vital Signs & Weight: Vital Signs (12 hours) Temp Pulse Resp BP Pulse Ox 12/29/18 08:01 94 L 12/29/18 07:25 98.2 F 97 20 130/82 94 L Weight Admit Weight 196 lb 9 oz Weight 196 lb 9 oz I&O: 12/28/18 12/29/18 12/30/18 06:59 06:59 06:59 Intake Total 2070 930 Balance 2070 930 Result Diagrams: 12/26/18 05:39 12/29/18 05:39 ROS - Review of Systems All systems: All other ROS were reviewed and found negative. Constitutional: denies: fever, chills, sweats, weakness, malaise, other ENT: denies: ear pain, ear discharge, nose pain, nose discharge, nose congestion , mouth pain, mouth swelling, throat pain, throat swelling, other Respiratory: denies: cough, dry, shortness of breath, hemoptysis, SOB with excertion, pleuritic pain, sputum, wheezing, other Cardiovascular: denies: chest pain, palpitations, orthopnea, paroxysmal noc. dyspnea, edema, light headedness, other Gastrointestinal: denies: nausea, vomitting, abdominal pain, diarrhea, constipation, melena, hematochezia, other Genitourinary: denies: dysuria, frequency, incontinence, hematuria, retention, other Musculoskeletal: denies: neck pain, shoulder pain, arm pain, back pain, hand pain, leg pain, foot pain, other - Medication Medications: Active Medications Generic Name Dose Route Start Last Admin Trade Name Freq PRN Reason Stop Dose Admin Acetaminophen 650 mg 12/25/18 02:53 12/29/18 08:08 Tylenol PO 650 mg Q4H PRN Administration Headache/Fever/Mild Pain (1-3) Dicyclomine HCl 10 mg 12/25/18 00:29 12/27/18 08:03 Bentyl PO 10 mg QIDPRN PRN Administration CRAMP Hydrocortisone Acetate 25 mg 12/29/18 03:10 12/29/18 03:34 Anusol-Hc WI 25 mg BID PRN Administration Hemorrhoids Ondansetron HCl 4 mg 12/25/18 02:53 12/29/18 05:32 Zofran IVP 4 mg Q6H PRN Administration Nausea/Vomiting Pantoprazole Sodium 40 mg 12/25/18 09:00 12/29/18 08:09 Protonix PO 40 mg DAILY LINSEY Administration Tramadol HCl 100 mg 12/25/18 13:20 12/26/18 17:46 Ultram PO 100 mg Q6H PRN Administration Severe Pain (7-10) - Exam NAD, awake alert Eye: PERRL, anicteric sclera ENT: normocephalic atraumatic, no oropharyngeal lesions Neck: supple, symmetric, no JVD, no Thyromegaly Heart: RRR, no murmur, no gallops, no rubs Respiratory: CTAB, no wheezes, no rales, no ronchi Gastrointestinal: soft (ascites+) Extremities: no cyanosis, no clubbing, no edema Skin: normal turgor, no lesions Neurological: CN's grossly intact, no focal deficits Musculoskeletal: normal tone, normal strength Psychiatric: normal affect, normal behavior Hosp A/P (1) Abdominal pain Code(s): R10.9 - UNSPECIFIED ABDOMINAL PAIN Status: Acute (2) Acute kidney injury Code(s): N17.9 - ACUTE KIDNEY FAILURE, UNSPECIFIED Status: Acute (3) Ascites Code(s): R18.8 - OTHER ASCITES Status: Acute Qualifiers: Ascites type: malignant Qualified Code(s): R18.0 - Malignant ascites (4) Gastric cancer Status: Acute Qualifiers: 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 Qualified Code(s): 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 (5) Hematochezia Code(s): K92.1 - MELENA Status: Acute (6) Hyperkalemia Code(s): E87.5 - HYPERKALEMIA Status: Acute (7) Hyponatremia Code(s): E87.1 - HYPO-OSMOLALITY AND HYPONATREMIA Status: Acute (8) Weight loss Status: Acute - Plan old records reviewed/req, plan discussed w/ family, psychotherapist social worker initiated transfer to [facility] as per family request, i spoke with transfer center [facility] but his transfer to [facility] not successful will monitor his creatinine and potassium as per dr somers, will repeat labs tomorrow and continue to improve, then possible discharge tomorrow medication reviewed as below symptomatic treatment
[2018-12-30 06:29] LABS: #Eosinphils 0.3 thou/uL (0.0-0.7); #Monocytes 1.1 thou/uL (0.11-0.59); #Neutrophils 14.4 thou/uL (1.40-6.50); %Basophils 0.3 % (0.0-1.0); %Eosinophils 1.8 % (0.0-10.0); %Lymphocytes 5.9 % (21.0-51.0); %Monocytes 6.7 % (0.0-10.0); %Neutrophils 85.4 % (42.0-75.0); Hemoglobin 13.7 g/dL (14.0-18.0); Mean Corpuscular HGB CONC 32.5 g/dL (32.0-36.0); Mean Corpuscular Hemoglobin 28.6 pg (27.0-31.0); Mean Corpuscular Volume 87.8 fL (78.0-98.0); Platelet Count 265 thou/uL (130-400); RBC Distribution Width 12.8 % (11.5-14.5); Red Blood Cell (RBC) Count 4.78 mill/uL (4.70-6.10); White Blood Cell (WBC) Count 16.8 thou/uL (4.8-10.8)
[2018-12-30 06:50] LABS: Anion Gap 18 mmol/L (10-20); BUN (Urea Nitrogen) 57 mg/dL (8.4-25.7); Calc. Creatinine Clearance 46 mL/min (70-130); Calcium 8.6 mg/dL (7.8-10.44); Carbon Dioxide 17 mmol/L (23-31); Chloride 107 mmol/L (98-107); Estimated GFR-MDRD 33; Glucose 86 mg/dL (80-115); Potassium 5.2 mmol/L (3.5-5.1); Sodium 137 mmol/L (136-145)
--- NOTE | 2018-12-30 08:07 | EKG ---
Test Reason : Blood Pressure : / mmHG Vent. Rate : 099 BPM Atrial Rate : 099 BPM P-R Int : 144 ms QRS Dur : 082 ms QT Int : 326 ms P-R-T Axes : 008 013 015 degrees QTc Int : 418 ms Normal sinus rhythm When compared with ECG of 16-FEB-2001 02:30, Vent. rate has increased BY [address] Jeff HARDY ([id number]) on 12/30/2018 8:07:28 AM Referred By: MARISOL Confirmed By:DR. Jeff HARDY
--- NOTE | 2018-12-30 08:14 | EKG ---
Test Reason : Blood Pressure : / mmHG Vent. Rate : 117 BPM Atrial Rate : 117 BPM P-R Int : 136 ms QRS Dur : 082 ms QT Int : 284 ms P-R-T Axes : 006 005 -30 degrees QTc Int : 396 ms Sinus tachycardia Cannot rule out Inferior infarct , age undetermined Abnormal ECG When compared with ECG of 28-DEC-2018 06:42, (Unconfirmed) Nonspecific T wave abnormality now evident in Anterior leads Confirmed by DR. Jeff HARDY ([id number]) on 12/30/2018 8:13:29 AM Referred By: Confirmed By:DR. Jeff HARDY
--- NOTE | 2018-12-30 11:21 | PQF ---
RDMOODY KARISHMA [id number] -[id number] CLINICAL DOCUMENTATION IMPROVEMENT CLARIFICATION FORM: ICD-10 Updated PLEASE DO AN ADDENDUM TO THE PROGRESS NOTE WITH ANY DOCUMENTATION UPDATES OR ADDITIONS AND CARRY THROUGH TO DC SUMMARY. THANK YOU. Date: 12/30/2018 ATTN: DR. Bret VALDEZ Please exercise your independent, professional judgment in responding to the clarification form. Clinical indicators are provided on the bottom of this form for your review. Please check appropriate box(s): [ x Protein Calorie Malnutrition: [ ] Mild [ x ] Moderate [ ] Severe [ ] Cachexia [ ] Other diagnosis [ ] Unable to determine In addition, please specify: Present on Admission (POA): [ x] Yes [ ] No [ ] Unable to determine CLINICAL INDICATORS - SIGNS / SYMPTOMS / LABS 12/26: NUTRITION DX : SUBOPTIMAL ORAL INTAKE EVIDENCED BY PT REPORTING POOR APPETITE, 10-25% MEAL TRAYS TAKEN SINCE ADMIT 12/26: OBJECTIVE ASSESSMENT; 12.3% WEIGHT LOSS IN 4-6 WEEKS; 12/28-12/29 PN (JAH) A/P : WEIGHT LOSS, ABD PAIN, ASCITES 12/28 PN (YOU) HE IS COMPLAINING OF SOME ABDOMINAL FULLNESS 12/29 ONCOLOGY PN (ROX) PT COMPLAINS OF WEAKNESS, DIFFICULTY EATING RISK: DX GASTRIC CANCER (PN/ROX) ASCITES (PN/JAH) TREATMENTS: DIETARY CONSULT NEPRO TID ANTIEMETICS PRN PARACENTESIS 12/25 Moderate Malnutrition (in acute illness) Energy Intake: <75% of estimated energy requirement for > 7 days Weight Loss: 1-2%/1 week; 5%/ 1 month; 7.5%/3 months Other: mild body fat loss; mild muscle mass loss; mild fluid accumulation; Severe Malnutrition (in acute illness) Energy Intake: < 50% of estimated energy requirement for > 5 days Weight Loss: >1-2%/1 week; >5%/1 month; >7.5%/3 months Other: moderate body fat loss; moderate muscle mass loss; moderate- severe fluid accumulation; measurably reduced entry examiner strength Moderate Malnutrition (in chronic illness) Energy Intake: <75% of estimated energy requirement for >1 month Weight Loss: 5%/1 month; 7.5%/3 months; 10%/6 months; 20%/1 year Other: mild body fat loss; mild muscle mass loss; mild fluid accumulation Severe Malnutrition (in chronic illness) Energy Intake: <75% of estimated energy requirement for >1 month Weight Loss: >5%/1 month; >7.5%/3 months; >10%/6 months; >20%/1 year Other: severe body fat loss; severe muscle mass loss; severe fluid accumulation ; measurably reduced entry examiner strength THANK YOU! TUCKER (This form is maintained as a part of the permanent medical record) 2014 [employer]. All Rights Reserved [employer]AP[employer] [email or web address] [phone] MTDD
[2018-12-30] MEDS ORDERED: Albumin 25% 25 GM/100 ML BOT IVPB SCH ×2 (12:00→17:27)
[2018-12-30] MEDS ORDERED: Furosemide 40 MG TAB PO SCH (13:00)
[2018-12-30 14:01] LABS: ALT (SGPT) 14 U/L (8-55); AST (SGOT) 36 U/L (5-34); Albumin 2.9 g/dL (3.4-4.8); Alkaline Phosphatase 98 U/L (40-150); Bilirubin, Direct 0.2 mg/dL (0.1-0.3); Bilirubin, Total 0.4 mg/dL (0.2-1.2); Protein, Total 6.8 g/dL (5.8-8.1)
--- NOTE | 2018-12-30 14:13 | ULT ---
Ultrasound-guided paracentesis: HISTORY: Abdominal distention, malignant ascites. FINDINGS: Informed consent obtained prior to the procedure. Preprocedural imaging demonstrated intrap eritoneal free fluid. An area was marked in the Right lower quadrant , and then meticulously prepped and draped in normal s terile fashion and anesthetized with 1% buffered lidocaine. With direct sonographic guidance, a 19-gauge needle and 5 Maori Yueh catheter were advanced into the abdomen. After the return of fluid, the catheter was advanced, and the needle was removed. Approximately 4 L of serosanguineous fluid was aspirated. The introducer sheath was removed, and hemo stasis was achieved with direct pressure. A dry sterile dressing was placed. The patient tolerated the procedure well and without immediate complication. Small amount of free fluid persisted after par acentesis. IMPRESSION: Technically successful ultrasound-guided paracentesis.
--- NOTE | 2018-12-30 14:38 | PDOC.HOSPP ---
- Subjective Subjective: pt up in bed concern that he is not eating much and needs nutrition to handle chemo. pt also feels distended and wants a paracentesis. - Objective Vital Signs & Weight: Vital Signs (12 hours) Temp Pulse Resp BP Pulse Ox 12/30/18 08:00 92 L 12/30/18 07:31 97.7 F 96 18 118/80 92 L 12/30/18 05:15 98.9 F 90 20 124/82 95 Weight Admit Weight 196 lb 9 oz Weight 196 lb 9 oz I&O: 12/29/18 12/30/18 12/31/18 06:59 06:59 06:59 Intake Total 930 1000 200 Balance 930 1000 200 Result Diagrams: 12/30/18 05:37 12/30/18 05:37 ROS - Review of Systems All systems: All other ROS were reviewed and found negative. ENT: denies: ear pain, ear discharge, nose pain, nose discharge, nose congestion , mouth pain, mouth swelling, throat pain, throat swelling, other Respiratory: denies: cough, dry, shortness of breath, hemoptysis, SOB with excertion, pleuritic pain, sputum, wheezing, other Cardiovascular: denies: chest pain, palpitations, orthopnea, paroxysmal noc. dyspnea, edema, light headedness, other Gastrointestinal: reports: abdominal pain - Medication Medications: Active Medications Generic Name Dose Route Start Last Admin Trade Name Freq PRN Reason Stop Dose Admin Acetaminophen 650 mg 12/25/18 02:53 12/29/18 20:25 Tylenol PO 650 mg Q4H PRN Administration Headache/Fever/Mild Pain (1-3) Albumin Human 25 gm 12/30/18 12:00 12/30/18 14:11 Albumin 25% IVPB 12/31/18 16:00 25 gm 1200 LINSEY Administration Dicyclomine HCl 10 mg 12/25/18 00:29 12/27/18 08:03 Bentyl PO 10 mg QIDPRN PRN Administration CRAMP Furosemide 40 mg 12/30/18 13:00 12/30/18 14:14 Lasix PO 12/30/18 15:00 40 mg NOW LINSEY Administration Hydrocortisone Acetate 25 mg 12/29/18 03:10 12/29/18 03:34 Anusol-Hc UT 25 mg BID PRN Administration Hemorrhoids Ondansetron HCl 4 mg 12/25/18 02:53 12/29/18 05:32 Zofran IVP 4 mg Q6H PRN Administration Nausea/Vomiting Pantoprazole Sodium 40 mg 12/25/18 09:00 12/30/18 07:59 Protonix PO 40 mg DAILY LINSEY Administration Tramadol HCl 100 mg 12/25/18 13:20 12/26/18 17:46 Ultram PO 100 mg Q6H PRN Administration Severe Pain (7-10) - Exam Heart: negative: RRR, no murmur, no gallops, no rubs, normal peripheral pulses, irregular, diminshed peripheral pulses, murmur present, II/IV, III/IV Respiratory: negative: CTAB, no wheezes, no rales, no ronchi, normal chest expansion, no tachypnea, normal percussion, rales, rhonchi, tachypneic, wheezes Gastrointestinal: no hepatomegaly, no splenomegaly (abd distention) Hosp A/P (1) Abdominal pain Code(s): R10.9 - UNSPECIFIED ABDOMINAL PAIN Status: Acute (2) Protein-calorie malnutrition, moderate Code(s): E44.0 - MODERATE PROTEIN-CALORIE MALNUTRITION Status: Acute (3) Acute kidney injury Code(s): N17.9 - ACUTE KIDNEY FAILURE, UNSPECIFIED Status: Acute (4) Gastric cancer Status: Acute Qualifiers: 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 He is not eating enough. Pt also is going to have an appointment on Wednesday with a oncologist at [facility] where his sister goes. i will order paracentesis for him and give his some albumin and put him on lasix.
[2018-12-30] MEDS ORDERED: SODIUM ACETATE IV SCH (15:45)
[2018-12-30] MEDS ORDERED: SODIUM CHLORIDE IV SCH (15:45)
[2018-12-30] MEDS ORDERED: CALCIUM GLUCONATE IV SCH (15:45)
[2018-12-30] MEDS ORDERED: [UNRECOGNIZED DRUG - OTHER] IV SCH (15:45)
[2018-12-30 15:56] LABS: INR-International Normal Ratio 1.3; PTT 26.8 SEC (22.9-36.1); Prothrombin Time 16.1 SEC (12.0-14.7)
[2018-12-30 16:11] LABS: ALT (SGPT) 12 U/L (8-55); AST (SGOT) 34 U/L (5-34); Albumin 3.2 g/dL (3.4-4.8); Alkaline Phosphatase 86 U/L (40-150); Anion Gap 19 mmol/L (10-20); BUN (Urea Nitrogen) 60 mg/dL (8.4-25.7); Bilirubin, Total 0.4 mg/dL (0.2-1.2); Calc. Creatinine Clearance 44 mL/min (70-130); Calcium 8.6 mg/dL (7.8-10.44); Carbon Dioxide 18 mmol/L (23-31); Cardiac Risk 5.6 (Less than 4.5); Chloride 106 mmol/L (98-107); Cholesterol 117 mg/dl (< 200 Desired); Estimated GFR-MDRD 31; Globulin 3.6 g/dL (2.4-3.5); Glucose 79 mg/dL (80-115); HDL Cholesterol 21 mg/dL (>60 Neg Risk); LDL Cholesterol, Calculated 61 mg/dL; Magnesium 2.5 mg/dL (1.6-2.6); Phosphorus 5.1 mg/dL (2.3-4.7); Potassium 5.6 mmol/L (3.5-5.1); Protein, Total 6.8 g/dL (5.8-8.1); Sodium 137 mmol/L (136-145); Triglycerides 175 mg/dL (Less than 150)
--- NOTE | 2018-12-30 17:52 | PRG ---
DATE OF SERVICE: 12/30/2018 SUBJECTIVE: Mr. Phan is a 63-year-old male, who was seen for his acute kidney injury that was prerenal on top of presumptive chronic renal failure. Renal function has improved. However, in the last 2 days, his belly has become more distended and he has become more mildly short of breath. He was given a one-time dose of Lasix and albumin. My bias is to continue the Lasix and albumin infusion. He was also noted to be mildly hyperkalemic. OBJECTIVE: VITAL SIGNS: Blood pressure is 118/80, heart rate 96, respiratory rate 18, temperature 97.7, and pulse oximetry 92% on room air. GENERA: Awake, alert, and comfortable, not in overt distress. SKIN: Adequate turgor. HEENT: He has pinkish conjunctivae. Anicteric sclerae. NECK: No neck mass. No carotid bruits. No JVD. CHEST: No deformities. LUNGS: Decreased breath sounds. HEART: Normal sinus rhythm. No murmur. No gallops or rubs. ABDOMEN: Globular, soft, nontender. No masses. Positive for ascites ?. EXTREMITIES: Trace edema. MEDICATIONS: Medications of December 30, 2018, was reviewed. LABORATORY DATA: Laboratories of December 30, 2018; white count 16.8, hemoglobin 13.7. Sodium 137, potassium 5.6, chloride 106, carbon dioxide 18, BUN 60, creatinine 2.13, magnesium 2.5, and albumin is 3.2. ASSESSMENT AND PLAN: 1. Ascites - the patient did receive 4 L fluid removal via paracentesis. My bias is to maintain the patient on an albumin infusion to protect the renal perfusion. The patient is started on a regular Lasix regimen. 2. Acute kidney injury - hemodynamically-mediated dysfunction. Start albumin infusion. 3. Gastric carcinoma. Supportive care. There is no indication for any dialytic intervention. Job ID: [id number]
[2018-12-30] MEDS: Acetaminophen 325 MG TAB PO PRN (18:45)
[2018-12-30] MEDS: Albumin 25% 25 GM/100 ML BOT IVPB SCH (19:53)
[2018-12-30] MEDS ORDERED: Acetaminophen 1,000 MG in Premix Bag 1 BAG IVPB SCH (22:00)
[2018-12-30] MEDS: SODIUM CHLORIDE IV SCH (22:25)
[2018-12-30] MEDS: SODIUM ACETATE IV SCH (22:25)
[2018-12-30] MEDS: [UNRECOGNIZED DRUG - OTHER] IV SCH (22:25)
[2018-12-30] MEDS: CALCIUM GLUCONATE IV SCH (22:25)
[2018-12-31] MEDS: Albumin 25% 25 GM/100 ML BOT IVPB SCH ×4 (01:50→22:08)
--- NOTE | 2018-12-31 03:58 | PDOC.EVN ---
Event Note - Event Note Event Note: Notified by RN, patient with unusual reaction to Phenergan. Immediately after it was given (25 mg IV), he began to feel what he describes as a "sensation coming over me", "I feel like when I let myself fall asleep, Im going to pass out". He keeps shaking intermittently and states he is trying to keep himself awake. He was found sitting up on the side of the bed. He appears drowsy. Vitals stable. Normal sats. Denies any sob or chest pain. Discussed with Dr. Linares who advised a 250 cc bolus NS and we will repeat electrolytes. Patient on TPN. Neuro checks Q1HR x 4.
[2018-12-31] MEDS ORDERED: Sodium Chloride 0.9% 250 ML IV SCH (04:00)
[2018-12-31 04:47] LABS: Magnesium 2.3 mg/dL (1.6-2.6); Potassium 4.7 mmol/L (3.5-5.1)
[2018-12-31] MEDS: Furosemide 40 MG/4 ML VIAL SLOW IVP SCH ×2 (06:29→14:07)
[2018-12-31] MEDS ORDERED: Acetaminophen 650 MG in Premix Bag 1 BAG IVPB PRN (10:22)
[2018-12-31] MEDS ORDERED: Lidocaine 5% Patch TD SCH (10:30)
[2018-12-31] MEDS ORDERED: Acetaminophen 650 MG/20.3 ML UDCUP PO PRN (10:41)
[2018-12-31] MEDS ORDERED: Senokot S 8.6-50 MG TAB PO SCH (10:45)
[2018-12-31 11:00] LABS: Anion Gap 15 mmol/L (10-20); BUN (Urea Nitrogen) 56 mg/dL (8.4-25.7); Calc. Creatinine Clearance 53 mL/min (70-130); Calcium 8.5 mg/dL (7.8-10.44); Carbon Dioxide 21 mmol/L (23-31); Chloride 104 mmol/L (98-107); Estimated GFR-MDRD 40; Glucose 141 mg/dL (80-115); Potassium 4.9 mmol/L (3.5-5.1); Sodium 135 mmol/L (136-145)
--- NOTE | 2018-12-31 11:46 | PRG ---
DATE OF SERVICE: 12/31/2018 SUBJECTIVE: Mr. Phan is a 63-year-old male, who was seen by the Renal Service for his acute kidney injury on top of his chronic renal failure. He was given volume repletion. However, during this hospitalization, he developed significant ascites. He had a 4 L paracentesis done. We have started him on albumin infusion to maintain his intravascular volume. In addition, due to the ascites, he has been placed on Lasix at 40 mg IV q.12h. He is feeling a little better. His abdominal distention is less. OBJECTIVE: VITAL SIGNS: Blood pressure is 129/79, heart rate 91, respiratory rate 18, temperature 97.9 and pulse ox is 96%. GENERAL: Noted to be awake, alert, comfortable, not in overt distress. SKIN: Adequate turgor. HEENT: He has had a pinkish conjunctivae. Anicteric sclerae. No neck mass. No carotid bruits. No JVD. CHEST: No deformities. LUNGS: Clear breath sounds. HEART: Normal sinus rhythm. No murmurs. No gallops or rubs. ABDOMEN: Globular, soft, nontender. No masses. Positive for ascites. EXTREMITIES: No edema. MEDICATIONS: Medications of December 31, 2018, were reviewed. LABORATORY DATA: Laboratories of December 31, 2018, sodium 135, potassium 4.9, chloride 104, carbon dioxide 21, BUN 56, creatinine 1.74, glucose 141, calcium 8.5, and magnesium is 2.3. ASSESSMENT AND PLAN: 1. Acute kidney injury/chronic renal failure? - creatinine improving with albumin infusion. He is tolerating the said treatment. I have started Lasix at 40 mg IV q.12. My plan is to continue current albumin infusion for 4 more doses and continue the Lasix. Consider starting tomorrow to decrease the Lasix dose to 40 mg IV daily. 2. Ascites, status post 4 L paracentesis. Doing well. Tolerated said treatment. He is on albumin infusion. 3. Gastric carcinoma for eventual chemotherapy. 4. Agree with current management. Job ID: [id number]
[2018-12-31] MEDS: Acetaminophen 325 MG TAB PO PRN (11:54)
[2018-12-31] MEDS ORDERED: Albumin 25% 25 GM/100 ML BOT IVPB SCH (12:00)
--- NOTE | 2018-12-31 14:24 | PDOC.HOSPP ---
- Subjective Subjective: Pt seen for followup re: acute kidney injury. Says he feels weak. - Objective Vital Signs & Weight: Vital Signs (12 hours) Temp Pulse Resp BP BP Pulse Ox 12/31/18 12:00 97.8 F 92 18 109/70 96 12/31/18 08:00 97.9 F 91 18 129/79 96 12/31/18 03:30 97.7 F 93 18 129/77 97 Weight Admit Weight 196 lb 9 oz Weight 196 lb 9 oz I&O: 12/30/18 12/31/18 01/01/19 06:59 06:59 06:59 Intake Total 1000 1213 Balance 1000 1213 Result Diagrams: 12/30/18 05:37 12/31/18 10:29 Additional Labs: Accuchecks 12/31/18 03:38 POC Glucose 121 H :Labs and MARs reviewed by me ROS - Review of Systems All systems: All other ROS were reviewed and found negative. Constitutional: reports: weakness Respiratory: denies: cough, dry, shortness of breath, hemoptysis, SOB with excertion, pleuritic pain, sputum, wheezing Cardiovascular: denies: chest pain, palpitations, orthopnea, paroxysmal noc. dyspnea, edema, light headedness - Medication Medications: Active Medications Generic Name Dose Route Start Last Admin Trade Name Joséq PRN Reason Stop Dose Admin Acetaminophen 650 mg 12/25/18 02:53 12/31/18 11:54 Tylenol PO 650 mg Q4H PRN Administration Headache/Fever/Mild Pain (1-3) Dicyclomine HCl 10 mg 12/25/18 00:29 12/27/18 08:03 Bentyl PO 10 mg QIDPRN PRN Administration CRAMP Furosemide 40 mg 12/31/18 06:00 12/31/18 06:29 Lasix SLOW IVP 40 mg 0600,1400 LINSEY Administration Hydrocortisone Acetate 25 mg 12/29/18 03:10 12/29/18 03:34 Anusol-Hc GA 25 mg BID PRN Administration Hemorrhoids Sodium Acetate 40 meq/ Sodium 2,031.7021 mls @ 84.654 mls/hr 12/30/18 16:30 12/30/18 22:25 Chloride 30 meq/ Calcium IV 2,031.7021 mls Gluconate 10 meq/ Magnesium INF LINSEY Administration Sulfate 10 meq/ Multivitamins 10 ml/ Chromium/Copper/ Manganese/Seleni/Zn 5 ml/ Potassium Acetate 30 meq/ Fat Emulsion Intravenous 250 ml/ Dextrose/Water/ Sterile Water/ Amino Acids Ondansetron HCl 4 mg 12/25/18 02:53 12/29/18 05:32 Zofran IVP 4 mg Q6H PRN Administration Nausea/Vomiting Pantoprazole Sodium 40 mg 12/25/18 09:00 12/31/18 10:01 Protonix PO 40 mg DAILY LINSEY Administration Tramadol HCl 100 mg 12/25/18 13:20 12/26/18 17:46 Ultram PO 100 mg Q6H PRN Administration Severe Pain (7-10) - Exam NAD Eye: anicteric sclera ENT: moist mucosa Neck: supple Heart: RRR Respiratory: CTAB Extremities: no cyanosis Neurological: CN's grossly intact Psychiatric: normal affect Hosp A/P (1) Acute kidney injury Code(s): N17.9 - ACUTE KIDNEY FAILURE, UNSPECIFIED Status: Acute (2) Ascites Code(s): R18.8 - OTHER ASCITES Status: Acute Qualifiers: Ascites type: malignant Qualified Code(s): R18.0 - Malignant ascites (3) Gastric cancer Status: Acute Qualifiers: 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 Pt has been started on TPN. Had paracentesis yesterday. Receiving albumin.
[2018-12-31] MEDS ORDERED: Morphine 2 MG/ML SYRINGE SLOW IVP SCH (20:15)
[2018-12-31] MEDS: Senokot S 8.6-50 MG TAB PO SCH (20:25)
[2018-12-31] MEDS: Lidocaine Patch Removal 1 EACH TOP SCH (20:27)
[2019-01-01] MEDS: [UNRECOGNIZED DRUG - OTHER] IV SCH ×2 (00:05→22:05)
[2019-01-01] MEDS: SODIUM ACETATE IV SCH ×2 (00:05→22:05)
[2019-01-01] MEDS: SODIUM CHLORIDE IV SCH ×2 (00:05→22:05)
[2019-01-01] MEDS: CALCIUM GLUCONATE IV SCH ×2 (00:05→22:05)
[2019-01-01] MEDS ORDERED: Morphine 2 MG/ML SYRINGE SLOW IVP SCH (02:15)
[2019-01-01] MEDS: Albumin 25% 25 GM/100 ML BOT IVPB SCH ×2 (04:00→08:21)
[2019-01-01] MEDS: Furosemide 40 MG/4 ML VIAL SLOW IVP SCH (06:22)
[2019-01-01] MEDS: Senokot S 8.6-50 MG TAB PO SCH ×2 (08:20→20:16)
[2019-01-01 09:06] LABS: #Eosinphils 0.8 thou/uL (0.0-0.7); #Monocytes 1.2 thou/uL (0.11-0.59); #Neutrophils 13.7 thou/uL (1.40-6.50); %Basophils 0.1 % (0.0-1.0); %Eosinophils 4.6 % (0.0-10.0); %Lymphocytes 6.1 % (21.0-51.0); %Monocytes 7.2 % (0.0-10.0); %Neutrophils 81.9 % (42.0-75.0); Hemoglobin 13.1 g/dL (14.0-18.0); Mean Corpuscular HGB CONC 32.6 g/dL (32.0-36.0); Mean Corpuscular Hemoglobin 28.1 pg (27.0-31.0); Mean Corpuscular Volume 86.2 fL (78.0-98.0); Mean Platelet Volume 8.6 fL (7.4-10.4); Platelet Count 199 thou/uL (130-400); RBC Distribution Width 12.7 % (11.5-14.5); Red Blood Cell (RBC) Count 4.67 mill/uL (4.70-6.10); White Blood Cell (WBC) Count 16.7 thou/uL (4.8-10.8)
[2019-01-01 09:27] LABS: ALT (SGPT) 16 U/L (8-55); AST (SGOT) 41 U/L (5-34); Albumin 3.9 g/dL (3.4-4.8); Alkaline Phosphatase 81 U/L (40-150); Anion Gap 14 mmol/L (10-20); BUN (Urea Nitrogen) 52 mg/dL (8.4-25.7); Bilirubin, Total 0.4 mg/dL (0.2-1.2); Calc. Creatinine Clearance 60 mL/min (70-130); Calcium 8.6 mg/dL (7.8-10.44); Carbon Dioxide 21 mmol/L (23-31); Chloride 104 mmol/L (98-107); Estimated GFR-MDRD 46; Globulin 2.8 g/dL (2.4-3.5); Glucose 152 mg/dL (80-115); Protein, Total 6.7 g/dL (5.8-8.1); Sodium 135 mmol/L (136-145)
[2019-01-01] MEDS ORDERED: Acetaminophen/Codeine 30-300mg Tablet PO PRN ×2 (10:44)
[2019-01-01] MEDS: Morphine 2 MG/ML SYRINGE SLOW IVP PRN ×3 (11:26→21:07)
[2019-01-01] MEDS: Lidocaine 5% Patch TD SCH (11:37)
--- NOTE | 2019-01-01 12:18 | PDOC.HOSPP ---
- Subjective Subjective: Pt seen for followup re; acute kidney injury. Pt c/o abdo pain, no fevers or chills. Not eating much. - Objective Vital Signs & Weight: Vital Signs (12 hours) Temp Pulse Resp BP Pulse Ox 01/01/19 08:00 97.6 F 95 18 123/75 95 Weight Admit Weight 196 lb 9 oz Weight 196 lb 9 oz I&O: 12/31/18 01/01/19 01/02/19 06:59 06:59 06:59 Intake Total 1213 2043 Output Total 300 Balance 1213 1743 Result Diagrams: 01/01/19 08:48 01/01/19 08:48 Additional Labs: Labs and MARs reviewed by me ROS - Review of Systems All systems: All other ROS were reviewed and found negative. Cardiovascular: denies: chest pain, palpitations, orthopnea, paroxysmal noc. dyspnea, edema, light headedness Gastrointestinal: reports: abdominal pain. denies: nausea, vomitting, diarrhea , constipation, melena, hematochezia - Medication Medications: Active Medications Generic Name Dose Route Start Last Admin Trade Name Freq PRN Reason Stop Dose Admin Acetaminophen 650 mg 12/25/18 02:53 12/31/18 11:54 Tylenol PO 650 mg Q4H PRN Administration Headache/Fever/Mild Pain (1-3) Dicyclomine HCl 10 mg 12/25/18 00:29 12/27/18 08:03 Bentyl PO 10 mg QIDPRN PRN Administration CRAMP Hydrocortisone Acetate 25 mg 12/29/18 03:10 12/29/18 03:34 Anusol-Hc IA 25 mg BID PRN Administration Hemorrhoids Sodium Acetate 40 meq/ Sodium 2,031.7021 mls @ 84.654 mls/hr 12/30/18 16:30 01/01/19 00:05 Chloride 30 meq/ Calcium IV 2,031.7021 mls Gluconate 10 meq/ Magnesium INF LINSEY Administration Sulfate 10 meq/ Multivitamins 10 ml/ Chromium/Copper/ Manganese/Seleni/Zn 5 ml/ Potassium Acetate 30 meq/ Fat Emulsion Intravenous 250 ml/ Dextrose/Water/ Sterile Water/ Amino Acids Lidocaine 1 patch 01/01/19 09:00 01/01/19 11:37 Lidoderm 5% Patch TD Not Given DAILY LINSEY Miscellaneous Medication 0 each 12/31/18 21:00 12/31/18 20:27 Lidocaine Patch Removal TOP Not Given HS LINSEY Morphine Sulfate 2 mg 01/01/19 11:10 01/01/19 11:26 Morphine SLOW IVP 2 mg Q4H PRN Administration BREAKTHRU PAIN Ondansetron HCl 4 mg 12/25/18 02:53 12/29/18 05:32 Zofran IVP 4 mg Q6H PRN Administration Nausea/Vomiting Pantoprazole Sodium 40 mg 12/25/18 09:00 01/01/19 08:20 Protonix PO 40 mg DAILY LINSEY Administration Senna/Docusate Sodium 1 tab 12/31/18 21:00 01/01/19 08:20 Senokot S PO 1 tab BID LINSEY Administration Tramadol HCl 100 mg 12/25/18 13:20 12/26/18 17:46 Ultram PO 100 mg Q6H PRN Administration Severe Pain (7-10) - Exam NAD Eye: anicteric sclera ENT: normocephalic atraumatic Neck: supple Heart: RRR Respiratory: CTAB Gastrointestinal: soft (distended) Neurological: no weakness Psychiatric: normal affect Hosp A/P (1) Acute kidney injury Code(s): N17.9 - ACUTE KIDNEY FAILURE, UNSPECIFIED Status: Acute (2) Ascites Code(s): R18.8 - OTHER ASCITES Status: Acute Qualifiers: Ascites type: malignant Qualified Code(s): R18.0 - Malignant ascites (3) Gastric cancer Status: Acute Qualifiers: 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 Start PRN Tylenl 3, PRN IV morphine. Increase Senokot to BID. Pt wants to go to [facility] on Wednesday to see an oncologist there. He is still on TPN.
--- NOTE | 2019-01-01 12:24 | PRG ---
DATE OF SERVICE: 01/01/2019 SERVICE: Renal Medicine. SUBJECTIVE: Mr. Phan is a 63-year-old white male, followed up for his acute kidney injury that was a hemodynamically-mediated renal dysfunction. He has also developed ascites. Please note, this patient has a recent diagnosis of gastric carcinoma. He is complaining of some abdominal fullness. I did note that ascites has worsened again. He did receive a paracentesis a few days back. He has also received albumin and Lasix and his renal function is tolerating this and is actually improving. OBJECTIVE: VITAL SIGNS: Blood pressure is noted at 122/72, heart rate 92, respiratory rate 18, temperature 97.9, pulse ox 95%. GENERAL: Noted to be awake, alert, comfortable, not in overt distress. SKIN: Adequate turgor. HEENT: He has pinkish conjunctivae. Anicteric sclerae. NECK: No neck mass. No carotid bruits. No JVD. CHEST: No deformities. LUNGS: Clear breath sounds. No wheezing. No crackles. HEART: Normal sinus rhythm. No murmur. No gallops. No rubs. ABDOMEN: Globular, soft, nontender. No masses. Positive for ascites. EXTREMITIES: No edema. MEDICATIONS: Medications of January 01, 2019, was reviewed. LABORATORY DATA: Laboratories of January 01, 2019; white count 16.7, hemoglobin 13.1. Sodium 135, potassium 4, chloride 104, carbon dioxide 21, BUN 52, creatinine 1.54, glucose is 152, calcium 8.6, magnesium 2.3, albumin 3.9. ASSESSMENT AND PLAN: 1. Acute kidney injury, consider hemodynamically-mediated renal dysfunction. The patient's renal function is slowly improving. He received albumin infusion in the last 2 days. Currently, he is now on TPN. We will hold off albumin. 2. Ascites, currently on a diuretic regimen. We will reschedule him back for another therapeutic paracentesis. We will decrease Lasix from 40 mg IV q.12 to once a day dosing. 3. Gastric carcinoma. Oncology is following. PROGNOSIS: Prognosis remains guarded. Recheck basic metabolic panel and CBC in a.m. Job ID: [id number]
[2019-01-01] MEDS: Lidocaine Patch Removal 1 EACH TOP SCH (20:16)
[2019-01-02] MEDS: Ondansetron PF 4 MG/2 ML Vial IVP PRN ×2 (02:29→08:31)
[2019-01-02] MEDS: Morphine 2 MG/ML SYRINGE SLOW IVP PRN ×2 (03:29→08:25)
[2019-01-02 04:48] LABS: ALT (SGPT) 21 U/L (8-55); AST (SGOT) 52 U/L (5-34); Albumin 3.6 g/dL (3.4-4.8); Alkaline Phosphatase 98 U/L (40-150); Anion Gap 15 mmol/L (10-20); BUN (Urea Nitrogen) 57 mg/dL (8.4-25.7); Bilirubin, Total 0.3 mg/dL (0.2-1.2); Calc. Creatinine Clearance 55 mL/min (70-130); Calcium 8.7 mg/dL (7.8-10.44); Carbon Dioxide 21 mmol/L (23-31); Chloride 104 mmol/L (98-107); Estimated GFR-MDRD 41; Globulin 3.2 g/dL (2.4-3.5); Glucose 159 mg/dL (80-115); Potassium 4.4 mmol/L (3.5-5.1); Protein, Total 6.8 g/dL (5.8-8.1); Sodium 136 mmol/L (136-145)
[2019-01-02 04:52] LABS: Band 1 % (5-11); Hemoglobin 13.7 g/dL (14.0-18.0); Lymphocytes 3 % (21-51); MDiff Complete? YES; Mean Corpuscular HGB CONC 33.2 g/dL (32.0-36.0); Mean Corpuscular Volume 87.2 fL (78.0-98.0); Mean Platelet Volume 9.2 fL (7.4-10.4); Monocytes 2 % (0-10); Neutrophil 94 % (42-75); Platelet Count 223 thou/uL (130-400); Platelet Morphology Comment Appears Adequate; RBC Distribution Width 12.8 % (11.5-14.5); RBC Morphology Normal; Red Blood Cell (RBC) Count 4.72 mill/uL (4.70-6.10); White Blood Cell (WBC) Count 20.7 thou/uL (4.8-10.8)
[2019-01-02] MEDS ORDERED: Sodium Bicarbonate 2.5 MEQ/5 ML VIAL ONE (08:12)
[2019-01-02] MEDS: Furosemide 40 MG/4 ML VIAL SLOW IVP SCH ×2 (08:23→11:10)
[2019-01-02] MEDS: Lidocaine 5% Patch TD SCH (08:23)
[2019-01-02] MEDS: Senokot S 8.6-50 MG TAB PO SCH (08:34)
--- NOTE | 2019-01-02 09:33 | ULT ---
PREPROCEDURE DIAGNOSIS: Ascites POST PROCEDURE DIAGNOSIS: Same PROCEDURE: Ultrasound-guided paracentesis UG DESIGNER: Man ANESTHESIA: 6 mL of buffered 1% lidocaine. SPECIMEN: 4.3 L of straw-colored fluid TECHNIQUE: Prior to the procedure, the risks and benefits of an ultrasound guided paracentesis were explained to the patient which consented fully to the procedure. The area of the largest fluid collection was seen in the right lower quadrant of the abdomen. This a ellen was prepped and draped in the usual sterile fashion. Lidocaine was used to anesthetize the skin and soft tissues down towards the peritoneal cavity. The p eritoneum was anesthetized. A small skin incision was made for passage of the Eyesquadeh needle and catheter. This device was then placed using ultrasound guidance into the peritoneal cavity. The needle was removed after return of fluid. The catheter was then connected to multiple Vacutainer bottles. A total of 4.3 L was removed. No residual fluid is seen in this region of the peritoneal cavity. IMPRESSION: Status post successful ultrasound-guided paracentesis
[2019-01-02 12:13] LABS: Phosphorus 2.5 mg/dL (2.3-4.7)
[2019-01-02 16:15] VITALS: BMI 27.5
[2019-01-02 16:20] VITALS: BP 100/67; TEMP 97.7
--- NOTE | 2019-01-03 14:09 | DIS ---
DATE OF ADMISSION: 12/24/2018 DATE OF DISCHARGE: 01/02/2019 PRIMARY CARE PROVIDER: Luc Parks MD DISCHARGE DIAGNOSES: 1. Acute kidney injury. 2. Nausea and vomiting. 3. Hyponatremia. 4. Poor oral intake. CONSULTATIONS DURING THIS HOSPITALIZATION: 1. Gastroenterology, Dr. Darek Flanagan. 2. Nephrology, Dr. Kunz. 3. General Surgery, Dr. Brooks. CONDITION OF PATIENT ON THE DAY OF DISCHARGE: Stable. I assessed Mr. Phan on the day of discharge. He denies any chest pain or shortness of breath. Vital signs are stable. S1 and S2 are heard, regular. Lungs are clear to auscultation bilaterally. DISCHARGE MEDICATIONS: 1. Zofran 4 mg every 8 hours as needed. 2. Tramadol 50 mg tablets, 1 to 2 tablets every 8 hours as needed. 3. Dicyclomine 10 mg 4 times a day as needed. 4. Guaifenesin 1 tablet as needed. 5. Protonix 40 mg daily. 6. Sennosides 8.6 mg daily. 7. Lasix 40 mg daily. 8. Melatonin 3 mg at bedtime as needed. HOSPITAL COURSE: Mr. Phan is a pleasant 63-year-old gentleman who was admitted to [facility] for nausea and vomiting. He was recently diagnosed with metastatic gastric cancer. He was seen by Gastroenterology Service. He was also seen by Nephrology Service for acute kidney injury and by Oncology Service. He had MediPort placed by General Surgery Service on December 27, 2018. He had poor oral intake. He was started on TPN. TPN is being discontinued at the time of discharge. He was seen by [facility]. Mr. Phan continued to improve slowly. He had a therapeutic paracentesis done on December 30 and January 02. He was offered chemotherapy at this location. [place] [facility] [place] January 03, 2019. He is being discharged to home in a stable condition. On the day of discharge, he has sodium 136, potassium 4.4, blood urea nitrogen 57, and creatinine 1.69. White count 20,700; hemoglobin 13.7; and platelet count 223,000. Many thanks for allowing me to participate in your patient's care. Please feel free to contact me with any questions or concerns. DISCHARGE DESTINATION: Home. TIME SPENT: Total amount of time spent coordinating this discharge, 32 minutes. Job ID: [id number]
== END 2019-01-02 17:00 | disposition home or self-care (01) | DRG 982 ==
LOC: ERS 21:29 → T4-B 22:55
PROVIDERS: ADMIT Hospitalist; ATTEND Hospitalist
PROC: 0JH60WZ Insertion of Totally Implantable Vascular Access Device into Chest Subcutaneous Tissue and Fascia, Open Approach (ICD-10-PCS; principal; 2018-12-28)
PROC: 02HV33Z Insertion of Infusion Device into Superior Vena Cava, Percutaneous Approach (ICD-10-PCS; 2018-12-28)
PROC: BF4CZZZ Ultrasonography of Hepatobiliary System, All (ICD-10-PCS; 2018-12-30)
PROC: 0W9G3ZZ Drainage of Peritoneal Cavity, Percutaneous Approach (ICD-10-PCS; 2018-12-30)
PROC: BF4CZZZ Ultrasonography of Hepatobiliary System, All (ICD-10-PCS; 2019-01-02)
PROC: 0W9G3ZZ Drainage of Peritoneal Cavity, Percutaneous Approach (ICD-10-PCS; 2019-01-02)
DX: C16.9 Malignant neoplasm of stomach, unspecified (principal); N17.9 Acute kidney failure, unspecified; E87.1 Hypo-osmolality and hyponatremia; R18.0 Malignant ascites; C78.7 Secondary malignant neoplasm of liver and intrahepatic bile duct; C77.9 Secondary and unspecified malignant neoplasm of lymph node, unspecified; K92.1 Melena; C78.6 Secondary malignant neoplasm of retroperitoneum and peritoneum; J91.0 Malignant pleural effusion; E44.0 Moderate protein-calorie malnutrition; I10 Essential (primary) hypertension; F41.9 Anxiety disorder, unspecified; E87.5 Hyperkalemia; I95.9 Hypotension, unspecified; E66.9 Obesity, unspecified; E86.0 Dehydration; E86.9 Volume depletion, unspecified; Z90.49 Acquired absence of other specified parts of digestive tract
CPT/HCPCS: 36415; 36416; 49083; 71045; 76000; 76770; 78815; 80048; 80053; 80061; 80076; 81003; 83690; 83735; 83930; 83935; 84100; 84132; 84134; 84300; 84484; 85025; 85060; 85610; 85730; 87045; 87046; 87070; 87205; 87324; 87328; 87329; 87449; 87899; 89051; 90471; 90670; 93005; 93010; 94640; 96360; A4217; A9552; C1788; G0009; J0131; J0690; J1200; J1642; J1940; J2001; J2250; J2270; J2405; J2550; J3010; J3475; J3490; J7611; P9047